=== PATIENT | male | born 1930 | race Caucasian/White ===

== ENCOUNTER 2017-04-25 04:26 | Inpatient (IN) | payer MEDICARE, OTHER ==
[~2017-04-25] VITALS: Ht 185.4 cm; Wt 81.6 kg
[2017-04-25 04:55] LABS: BASOPHILS 0.1 % (0-2); EOSINOPHILS 0.2 % (0-7); HEMATOCRIT 42.2 % (42.0-54.0); HEMOGLOBIN 14.7 g/dL (13.5-17.5); IMMATURE GRANULOCYTES 0.1 % (0-5); MCH 32.1 pg (26.0-34.0); MCHC 34.8 g/dL (31.0-37.0); MCV 92.1 fL (80.0-100.0); MEAN PLATELET VOLUME 10.2 fL (7.4-10.4); NEUTROPHILS 84.6 % (40-80); PLATELET COUNT 152 10x3/uL (130-400); RBC 4.58 10x6/uL (4.20-6.10); RDW 12.9 % (11.5-14.5); WBC 8.4 10x3/uL (4.8-10.8)
[2017-04-25 05:11] LABS: ALBUMIN 3.8 g/dL (3.4-5.0); ANION GAP 13.1 mmol/L (8-16); BILIRUBIN - TOTAL 0.54 mg/dL (0.2-1.3); CALCIUM 9.3 mg/dL (8.5-10.1); CARBON DIOXIDE 26.2 mmol/L (21.0-32.0); CREATININE - SERUM 1.5 mg/dL (0.6-1.3); POTASSIUM - SERUM 4.3 mmol/L (3.5-5.1); PROTEIN - SERUM 7.3 g/dL (6.4-8.2)
[2017-04-25 05:12] LABS: TROPONIN-I 0.02 ng/mL (0.000-0.060)
[2017-04-25 05:46] LABS: APPEARANCE CLEAR (CLEAR); BILIRUBIN NEGATIVE (NEGATIVE); COLOR YELLOW (YELLOW); GLUCOSE NEGATIVE (NEGATIVE); KETONE SMALL mg/dL (NEGATIVE); LEUKOCYTE ESTERASE NEGATIVE (NEGATIVE); NITRITE NEGATIVE (NEGATIVE); PROTEIN NEGATIVE (NEGATIVE); UROBILINOGEN NORMAL (NORMAL)
--- NOTE | 2017-04-25 12:16 | NUR ---
RECEIVED TO ROOM 2220 FROM VIA . ORIENTED TO ROOM AND CALL LIGHT SYSTEM.
[2017-04-25] MEDS ORDERED: SYNTHROID75 MCG PO (13:07)
[2017-04-25] MEDS ORDERED: CARDURA8 MG PO (13:08)
[2017-04-25] MEDS ORDERED: SINGULAIR10 MG PO (13:08)
[2017-04-25] MEDS ORDERED: NEURONTIN 300300 MG PO (13:09)
[2017-04-25] MEDS ORDERED: SPIRIVA18 MCG INH (13:09)
[2017-04-25] MEDS ORDERED: AZELASTINE137 MCG/0. NASAL (13:10)
[2017-04-25] MEDS ORDERED: SYMBICORT 16010.2 GM INH (13:11)
[2017-04-25] MEDS ORDERED: ZANTAC150 MG PO (13:12)
[2017-04-25] MEDS ORDERED: VENTOLIN HFA18 GM INH (13:12)
[2017-04-25] MEDS ORDERED: MYSOLINE 50 MG50 MG PO (13:13)
[2017-04-25] MEDS ORDERED: BAYER CHEWABLE81 MG PO (13:13)
[2017-04-25] MEDS ORDERED: TEMOVATE 0.05%15 G1 TOPICAL (13:14)
[2017-04-25 14:04] VITALS: BP 160/67; BMI 23.8
--- NOTE | 2017-04-25 14:12 | NUR ---
LEFT NARE NGT PLACED TO LIWS. NS INITIATED @ 100 CC/HR
--- NOTE | 2017-04-25 16:42 | NUR ---
BUPRENEX 0.1MG SIVP PER C/O PAIN. CALL LIGHT IN REACH.
[2017-04-25 20:00] VITALS: BP 197/91
--- NOTE | 2017-04-25 20:00 | NUR ---
ASSESSMENT PER FLOWSHEET. IV PATENT RT ARM OF NS AT 100CC'S/HR SITE CLEAR. NPO AT THIS TIME NGT PATENT LEFT NARE AND CONNECTED TO LIWS GREEN COLORED DRAINAGE RETURNED.SCD'S ON. FAMILY IN ROOM. HOB UP 45 DEGREES.
--- NOTE | 2017-04-25 21:30 | NUR ---
PT STILL HAVING EMESIS EVEN AFTER ADVANCING NGT. SMALL AMOUNT GREEN EMESIS NOTED.TURNED PUMP ON CONTINUOUS FOR ABOUT 15 MINUTES TO EMPTY OUT STOMACH.
--- NOTE | 2017-04-25 22:44 | NUR ---
C/O ABDOMINAL PAIN. BUPREXEX 0.1MG IVP GIVEN FOR PAIN CONTROL.
[2017-04-26] VITALS (8 sets, daily range): BP systolic 149–181; BP diastolic 65–81; Ht 185.4 cm; Wt 81.6 kg
--- NOTE | 2017-04-26 00:18 | NUR ---
CALLED TO ROOM BY FAMILY MEMBER. STATES PT HAD EMESIS. 1 TSP GREEN BILE COLORED EMESIS NOTED IN EMESIS BAG GOWN CHANGED.TOO SOON FOR ZOFRAN WILL GIVE IF NEEDED WHEN TIME PERMITS.
--- NOTE | 2017-04-26 00:58 | NUR ---
HAVING BROWN COLORED EMESIS ZOFRAN 4MG IVP GIVEN FOR EMESIS. SET PT UP IN CHAIR AND CHANGED GOWN AND BED LINENS. ASSISTEDTO UPRIGHT POSITION STOOD AND PT VOIDED 400 CC'S AIMEE COLORED URINE. ASSISTED BACK TO BED. SR UP X2 CALL LIGHT WITHIN REACH. FAMILY AT BEDSIDE.
[2017-04-26 05:20] LABS: BASOPHILS 0 % (0-2); EOSINOPHILS 0 % (0-7); HEMATOCRIT 44.8 % (42.0-54.0); HEMOGLOBIN 15.4 g/dL (13.5-17.5); LYMPHOCYTES 6.4 % (15-50); MCHC 34.4 g/dL (31.0-37.0); MCV 93.1 fL (80.0-100.0); MEAN PLATELET VOLUME 10.7 fL (7.4-10.4); MONOCYTES 5.1 % (2-11); NEUTROPHILS 88.5 % (40-80); PLATELET COUNT 159 10x3/uL (130-400); RBC 4.81 10x6/uL (4.20-6.10); RDW 13.1 % (11.5-14.5); WBC 6.8 10x3/uL (4.8-10.8)
[2017-04-26 05:45] LABS: ALBUMIN 2.9 g/dL (3.4-5.0); ANION GAP 13.1 mmol/L (8-16); BILIRUBIN - TOTAL 1.2 mg/dL (0.2-1.3); CALCIUM 8.2 mg/dL (8.5-10.1); CARBON DIOXIDE 24.3 mmol/L (21.0-32.0); CREATININE - SERUM 1.7 mg/dL (0.6-1.3); POTASSIUM - SERUM 4.4 mmol/L (3.5-5.1); PROTEIN - SERUM 6.2 g/dL (6.4-8.2)
--- NOTE | 2017-04-26 06:15 | NUR ---
PORT KUB DONE IN ROOM NO CHANGES IN ASSESSMENT STATES FEELING SOME BETTER.
--- NOTE | 2017-04-26 07:20 | NUR ---
PATIENT RECEIVED ALERT IN HIGH SAPP POSITION WITH FAMILY AT BEDSIDE. NO SIGNS OF DISTRESS NOTED. SIDE RAILS UP X2. BED IN LOW POSITION. CALL LIGHT IN REACH.
--- NOTE | 2017-04-26 07:40 | NUR ---
PATIENT ALERT IN BED. REPORTS VOMITING. APPROXIMATELY 40CC BROWN EMESIS IN BASIN. NGT TO LIWS. PLACEMENT VERIFIED WITH AIR BOLUS. ZOFRAN PER PRN ORDER. FAMILY PRESENT. SIDE RAILS UP X2. BED IN LOW POSITION. CALL LIGHT IN REACH.
--- NOTE | 2017-04-26 10:00 | NUR ---
SITTING UP IN CHAIR AT BEDSIDE ALERT. NO SIGNS OF DISTRESS NOTED. FAMILY PRESENT. CALL LIGHT IN REACH.
--- NOTE | 2017-04-26 11:17 | NUR ---
ASSISTED BACK TO BED FROM CHAIR. POSITIONED FOR COMFORT. WELL TOLERATED. DENIES NEEDS. SIDE RAILS UP X2. BED IN LOW POSITION. CALL LIGHT IN REACH.
--- NOTE | 2017-04-26 11:32 | NUR ---
Patient Name: MYLENE ZABALA Admission Status: ER Accout number: [id number] Admission Date: 04-25-2017 : 1928 Admission Diagnosis: Attending: ESTEBAN Current LOS: 1 Anticipated DC Date: 04-28-2017 Planned Disposition: Home Primary Insurance: MEDICARE A & B Discharge Planning Comments: CM MET WITH PATIENT AND FAMILY (-CESAR AND LINDEN -DAUGHTER) REGARDING D/C NEEDS AND PLANS. PATIENT STATED HIS FAMILY WILL DRIVE HIM HOME AT DISCHARGE. PATIENT HAS 4 STEPS W/RAILS TO ENTER HOME AND NO STAIRS INSIDE. PATIENT IS INDEPENDENT WITH HIS CARE AND HAS A CANE AND WHEELCHAIR. PATIENTS PCP IS DR. RICHARD AND PHARMACY IS [facility] [place]. PATIENT AND FAMILY WANTS TO WAIT AND SEE IF DOCTOR THINKS HE WOULD NEED IT. CM WILL CONTINUE TO FOLLOW PATIENT WITH D/C NEEDS AND PLANS. PCP DR. [facility] [place]- [phone] CESAR () [phone] LINDEN (DAUGHTER) [phone] Cheese Tester: Rafia Sinha Is the patient Alert and Oriented? Yes 0 * How many steps to enter\exit or inside your home? 4 0 * PCP HILARY 0 * Pharmacy [facility] [place] 0 * Preadmission Environment Home with Family 0 * ADLs Independent 0 * Equipment Cane Wheelchair 0 * List name and contact numbers for known caregivers / representatives who currently or will assist patient after discharge: CESAR () [phone] LINDEN (DAUGHTER) [phone] 0 * Community resources currently utilized None 0 * Additional services required to return to the preadmission environment? Yes 0 * Can the patient safely return to the preadmission environment? Yes 0 * Has this patient been hospitalized within the prior 30 days at any hospital? No 0 Grand Total: 0
--- NOTE | 2017-04-26 13:10 | NUR ---
CONSENT OBTAINED FOR ORDERED SURGERY.
--- NOTE | 2017-04-26 17:17 | NUR ---
PRE PROCEDURE MEDICATION ADMINISTERED. DENIES NEEDS. FAMILY PRESENT. SIDE RAILS UP X2. BED IN LOW POSITION. CALL LIGHT IN REACH.
--- NOTE | 2017-04-26 20:00 | NUR ---
ASSESMENT PER FLOWSHEET. NGT TO LIWS WITH BROWN COLORED DRAINAGE. IV PATENT RT FOREARM OF NS AT 100CC'S/HR SITE CLEAR. FAMILY IN ROOM. PT WAITING TO GO TO SURGERY.
--- NOTE | 2017-04-26 21:10 | NUR ---
TO SURGERY PER BED. FAMILY ACCOMPANYING PATIENT.
--- NOTE | 2017-04-26 23:31 | NUR ---
REC'D BACK TO ROOM 2220 FROM PACU POST OP DIAGNOSTIC LAPAROTOMY PER SERVICE DR. ZHU. ONE MIDLINE ABDOMINAL INCISION WITH DRSG C/D/I WITH 2 SMALL BANDAIDES TO THE LEFT OF MIDLINE INCISION C/D/I. PT IS AWAKE ALERT AND ORIENTED X3 O2 ON 4 L/M PER NC. HOB UP 35 DEGREES. TAKING ICE CHIPS PO. SR UP X2 CALL LIGHT WITHIN REACH FAMILY AT BEDSIDE.
[2017-04-27] VITALS (13 sets, daily range): BP systolic 125–189; BP diastolic 54–93
--- NOTE | 2017-04-27 05:10 | NUR ---
URINAL IN PLACE VPOIDED 400CC'S DARK AIMEE UA
[2017-04-27 05:38] LABS: BASOPHILS 0 % (0-2); EOSINOPHILS 0 % (0-7); HEMOGLOBIN 13.4 g/dL (13.5-17.5); LYMPHOCYTES 11.5 % (15-50); MCH 31.8 pg (26.0-34.0); MCHC 34.4 g/dL (31.0-37.0); MCV 92.4 fL (80.0-100.0); MEAN PLATELET VOLUME 10.7 fL (7.4-10.4); MONOCYTES 7.1 % (2-11); NEUTROPHILS 81.4 % (40-80); PLATELET COUNT 134 10x3/uL (130-400); RBC 4.22 10x6/uL (4.20-6.10); RDW 13.3 % (11.5-14.5)
[2017-04-27 05:42] LABS: WBC 4.8 10x3/uL (4.8-10.8)
[2017-04-27 06:00] LABS: ALBUMIN 2.5 g/dL (3.4-5.0); ANION GAP 10.3 mmol/L (8-16); BILIRUBIN - TOTAL 0.99 mg/dL (0.2-1.3); CALCIUM 8.2 mg/dL (8.5-10.1); CARBON DIOXIDE 25.9 mmol/L (21.0-32.0); CREATININE - SERUM 1.6 mg/dL (0.6-1.3); POTASSIUM - SERUM 4.2 mmol/L (3.5-5.1); PROTEIN - SERUM 5.7 g/dL (6.4-8.2)
--- NOTE | 2017-04-27 06:15 | NUR ---
C/O INCISIONAL PAIN BUPRENEX 0.1MG IVP GIVEN FOR PAIN CONTROL.
--- NOTE | 2017-04-27 07:30 | NUR ---
RECIEVED PT DURING WALKING ROUNDS, PT RESTING COMFORTABLY IN BED WITH COMPLAINTS OF PAIN OF A 3 ON A SCALE OF 1-10. NO MEDICATION TO BE GIVEN AT THIS TIME. ASSESSMENT DONE PER FLOWSHEET. BED IN LOW POSITION AND CALL LIGHT WITHIN REACH. WILL CONTINUE TO MONTIOR.
--- NOTE | 2017-04-28 02:37 | NUR ---
PT SLEEPING. RESP EVEN, UNLABORED. NO DISTRESS NOTED. CONTINUE SENIOR WINDOWS ENGINEER'S PLAN OF CARE.
[2017-04-28 04:00] VITALS: BP 132/61
[2017-04-28 04:47] LABS: BASOPHILS 0 % (0-2); EOSINOPHILS 0 % (0-7); HEMATOCRIT 33.7 % (42.0-54.0); HEMOGLOBIN 11.4 g/dL (13.5-17.5); LYMPHOCYTES 21.7 % (15-50); MCH 31.5 pg (26.0-34.0); MCHC 33.8 g/dL (31.0-37.0); MCV 93.1 fL (80.0-100.0); MEAN PLATELET VOLUME 10.5 fL (7.4-10.4); MONOCYTES 9.9 % (2-11); NEUTROPHILS 68.4 % (40-80); PLATELET COUNT 130 10x3/uL (130-400); RBC 3.62 10x6/uL (4.20-6.10); RDW 13.4 % (11.5-14.5); WBC 4.6 10x3/uL (4.8-10.8)
[2017-04-28 05:05] LABS: ALBUMIN 2.1 g/dL (3.4-5.0); BILIRUBIN - TOTAL 0.6 mg/dL (0.2-1.3); CALCIUM 7.9 mg/dL (8.5-10.1); CARBON DIOXIDE 24.7 mmol/L (21.0-32.0); CREATININE - SERUM 1.4 mg/dL (0.6-1.3); POTASSIUM - SERUM 3.7 mmol/L (3.5-5.1); PROTEIN - SERUM 5.3 g/dL (6.4-8.2)
--- NOTE | 2017-04-28 07:35 | NUR ---
A&O, AT BEDSIDE, DENIES NEEDS, CALL LIGHT IN REACH, WILL CONTINUE TO MONITOR
[2017-04-28 09:19] VITALS: BP 138/65
[2017-04-28 12:45] VITALS: BP 164/77
--- NOTE | 2017-04-28 12:57 | NUR ---
NUTRITION MONITORING & EVAL CHART REVIEWED. PT REMAINS NPO, S/P DIDI. WILL MONITOR DIET ADVANCEMENT, PT PROGRESS. RD FOLLOWING
--- NOTE | 2017-04-28 12:59 | OP ---
PATIENT NAME: MYLENE ZABALA MEDICAL RECORD: [id number] :[birth year] LOCATION:[facility] ADMISSION DATE:04/25/17 SURGEON: CHOLO ISABEL MD DATE OF OPERATION: 04/26/2017 PREOPERATIVE DIAGNOSES: 1. Small-bowel obstruction. 2. Chronic obstructive pulmonary disease. 3. Gastroesophageal reflux disease. POSTOPERATIVE DIAGNOSES: 1. Small-bowel obstruction. 2. Chronic obstructive pulmonary disease. 3. Gastroesophageal reflux disease. 4. Ischemic small bowel secondary to closed loop obstruction. PROCEDURE: 1. Diagnostic laparoscopy. 2. Open lysis of adhesions. SURGEON: Cholo Isabel MD REPORT OF PROCEDURE: The patient's abdomen was prepped and draped in sterile fashion. A Veress needle was inserted in the left upper quadrant and abdomen was insufflated. A 5-mm Visiport trocar was inserted in the left lateral abdomen. The Veress needle was inspected and there was no sign of any injury to bowel or surrounding structures. Another 5-mm trocar was placed in the left upper quadrant and a final 5-mm trocar was placed in the midline just below the umbilicus. As we inspected the abdomen, there were a few adhesions present of the omentum to this abdominal wall and these were teased down carefully with blunt dissection. As we inspected on the right side of the abdomen, there was noted to be a very ischemic loop of small bowel. This was almost black in nature. I went ahead inside of this point just to open up the abdomen as I had feared that this bowel was completely . Midline incision was performed and electrocautery was used to dissect through the subcutaneous tissue. Once in the abdomen, I inspected the patient's right upper quadrant and was able to take down a single adhesion that was present causing the obstruction. Once this was released then all of the bowel was mobile. I eviscerated the small bowel out of the abdomen and noticed that the bowel quickly started to pink up. The bowel still had some dark blue areas on its most antimesenteric side which appeared to be most consistent with venous congestion. I did not see any evidence of necrosis anywhere throughout the bowel. As I felt the bowel, I could feel pulsatile blood flow coming up through the mesentery to the small bowel. After we watched for approximately 10 minutes and noted that the bowel was pinking up and appeared to be viable, I went ahead and decided not to perform a resection. The bowel was placed back into the abdominal cavity and the omentum was placed over it. The midline fascia was then closed with running #1 loop PDS times 2 and the skin was closed with niko. I performed a TAP block to the muscular tissue using 10 mL of 0.25% Marcaine with epinephrine. COMPLICATIONS: None. CONDITION: Stable. ANESTHESIA: General endotracheal. OPERATIVE REPORT [id number] MYLENE ZABALA BLOOD LOSS: Minimal. TRANSINT:[id number] Voice Confirmation ID: [id number] DOCUMENT ID: [id number] CHOLO ISABEL MD at 1259 CC: [id number] DICTATION DATE: 04/26/172299 INSTRUMENT MAKER AND REPAIRER: 04/27/17 0640 ADM IN [place] [id number] [place] [id number]
[2017-04-28 16:45] VITALS: BP 165/76
[2017-04-28 20:00] VITALS: BP 179/76
[2017-04-29] VITALS: BP 168/70
[2017-04-29 04:00] VITALS: BP 174/74
--- NOTE | 2017-04-29 05:31 | NUR ---
PATIENT RESTING COMFORTABLY IN BED WITH NO COMPLAINTS AND AT BEDSIDE. NS INFUSING @50 TO RIGHT FOREARM. 3LPM O2 VIA NC NOTED. PATIENT HAS NOTED THAT HE HAS TREMORS AND IS WAITING TO HAVE A BM BEFORE HE CAN HAVE HIS MEDICATIONS FOR THEM. NO NEEDS NOTED. BED IN LOWEST LOCKED POSITION, HOB ELEVATED, BED RAILS UP X2, CALL LIGHT WITHIN REACH.
[2017-04-29 05:35] LABS: BASOPHILS 0 % (0-2); EOSINOPHILS 0.9 % (0-7); HEMATOCRIT 35.5 % (42.0-54.0); HEMOGLOBIN 12.2 g/dL (13.5-17.5); IMMATURE GRANULOCYTES 0.7 % (0-5); LYMPHOCYTES 18.9 % (15-50); MCH 31.9 pg (26.0-34.0); MCHC 34.4 g/dL (31.0-37.0); MCV 92.7 fL (80.0-100.0); MEAN PLATELET VOLUME 10.1 fL (7.4-10.4); MONOCYTES 8.8 % (2-11); NEUTROPHILS 70.7 % (40-80); RBC 3.83 10x6/uL (4.20-6.10); RDW 13.2 % (11.5-14.5); WBC 5.6 10x3/uL (4.8-10.8)
[2017-04-29 05:40] LABS: PLATELET COUNT 162 10x3/uL (130-400)
[2017-04-29 05:42] LABS: ALBUMIN 2.4 g/dL (3.4-5.0); ANION GAP 12.1 mmol/L (8-16); BILIRUBIN - TOTAL 0.8 mg/dL (0.2-1.3); CALCIUM 8.3 mg/dL (8.5-10.1); CARBON DIOXIDE 25.9 mmol/L (21.0-32.0); CREATININE - SERUM 1.2 mg/dL (0.6-1.3); PROTEIN - SERUM 5.9 g/dL (6.4-8.2)
--- NOTE | 2017-04-29 07:25 | NUR ---
ASSESSMENT COMPLETE. IV TO R FA PATENT. NS INFUSING AT 50 CC/HR VIA PUMP. DRESSING TO ABDOMEN INTACT. O2 3L NC IN USE. [place]. FAMILY AT BEDSIDE. REPORTS PASSING NO GAS SINCE SURGERY. NO BOWEL SOUNDS HEARD AT THIS TIME. DENIES ANY NAUSEA AT THIS TIME.
[2017-04-29 07:49] VITALS: BP 158/74
--- NOTE | 2017-04-29 09:00 | NUR ---
SITING UP IN CHAIR. FAMILY AT BEDSIDE. DENIES ANY NEEDS AT PRESENT.
--- NOTE | 2017-04-29 11:10 | NUR ---
RESTING QUIETLY IN BED. FAMILY AT BEDSIDE. DENIES ANY NEEDS AT PRESENT. DRESSING REMOVED BY DR. ISABEL.
[2017-04-29 12:18] VITALS: BP 175/77
--- NOTE | 2017-04-29 13:30 | NUR ---
RESTING QUIETLY IN BED. NO CHANGES NOTED.
[2017-04-29 14:43] VITALS: BP 184/71
--- NOTE | 2017-04-29 16:00 | NUR ---
RESTING QUIETLY IN BED. TALKING WITH MULTIPLE VISITORS IN ROOM. DENIES ANY NEEDS AT PRESENT.
--- NOTE | 2017-04-29 18:30 | NUR ---
REPORTS PASSING NO FLATUS THIS SHIFT.
[2017-04-29 20:00] VITALS: BP 174/64
[2017-04-30] VITALS: BP 141/54
--- NOTE | 2017-04-30 03:18 | NUR ---
PATIENT SLEEPING SUPINE IN BED. HOB 0 DEGREES. RR EVEN AND UNLABORED. 0 S/S OF DISTRESS. AT BEDSIDE. SRX2. BED LOW. CALL LIGHT WITHIN REACH.
[2017-04-30 04:00] VITALS: BP 144/60
[2017-04-30 05:17] LABS: BASOPHILS 0 % (0-2); EOSINOPHILS 1.1 % (0-7); HEMATOCRIT 32.9 % (42.0-54.0); HEMOGLOBIN 11.5 g/dL (13.5-17.5); IMMATURE GRANULOCYTES 0.7 % (0-5); LYMPHOCYTES 21.8 % (15-50); MCH 31.9 pg (26.0-34.0); MCV 91.1 fL (80.0-100.0); MEAN PLATELET VOLUME 9.7 fL (7.4-10.4); MONOCYTES 7.8 % (2-11); NEUTROPHILS 68.6 % (40-80); PLATELET COUNT 149 10x3/uL (130-400); RBC 3.61 10x6/uL (4.20-6.10); RDW 12.9 % (11.5-14.5); WBC 5.6 10x3/uL (4.8-10.8)
[2017-04-30 05:31] LABS: ALBUMIN 2.3 g/dL (3.4-5.0); BILIRUBIN - TOTAL 0.87 mg/dL (0.2-1.3); CALCIUM 8.1 mg/dL (8.5-10.1); CARBON DIOXIDE 21.6 mmol/L (21.0-32.0); CREATININE - SERUM 1.2 mg/dL (0.6-1.3); POTASSIUM - SERUM 3.6 mmol/L (3.5-5.1); PROTEIN - SERUM 5.5 g/dL (6.4-8.2)
--- NOTE | 2017-04-30 07:30 | NUR ---
AT BEDSIDE, DENIES NEEDS, STATES PASSING GAS, BOWEL SOUNDS ACTIVE X4 QUADS, BED LOWEST POSITION, CALL LIGHTIN REACH, WILL CONTINUE TO MONITOR
[2017-04-30 08:23] VITALS: BP 154/63
--- NOTE | 2017-04-30 10:00 | NUR ---
PT AOX4 RESP EVEN AND NONLABORED PT DENIES NEEDS AT THIS TIME IV TO RIGHT FOREARM PATENT AND INTACT SRX2 BED AT LOWEST SETTING CALL LIGHT WITHIN REACH FAMILY AT BEDSIDE. PT HERE FOR SMALL BOWEL OBSTRUCTION
[2017-04-30 12:55] VITALS: BP 143/58
[2017-04-30 16:14] VITALS: BP 154/84
[2017-04-30 19:00] VITALS: BP 191/91
--- NOTE | 2017-04-30 23:16 | NUR ---
PATIENT VOMITED ON BED WITH LARGE AMOUNT OF THE FLOOR. FOREST SUPERVISOR REPORTED THAT IS WAS BRIGHT GREEN/YELLOW IN COLORATION. PATIENT REPORTS THAT HE WOKE UP WHILE GETTING A NEBULIZER TREATMENT AND VOMITED. HE HAS NO NAUSEA AT THIS TIME.
--- NOTE | 2017-05-01 05:46 | NUR ---
PATIENT REPORTED VOMITING 3 TIMES THROUGH THE NIGHT.
--- NOTE | 2017-05-01 07:20 | NUR ---
ASSESSMENT PER FLOW SHEET.PT WITHOUT DISTRESS.MIDLINE ABDOMINAL INCISION APROXIMATED WITH 13 KRISTAL.SITE WITHOUT REDNESS OR DRAINAGE.LAP SITES X3 APROXIMATED WITH 1 STAPLE ON EACH SITE.SITES WITHOUT DRAINAGE.URINE VERY CONCENTRATED,AIMEE COLORED.PT AND REPORT 3 EPISODES OF VOMITING THROUGHOUT NIGHT.PT DENIES NAUSEA AT PRESENT.FALL PREVENTION INITIATED WITH BOX ALARM IN PLACE.CALL LIGHT IN REACH.
[2017-05-01 07:51] VITALS: BP 124/85
[2017-05-01 09:59] LABS: BASOPHILS 0 % (0-2); EOSINOPHILS 0.1 % (0-7); HEMATOCRIT 35.6 % (42.0-54.0); HEMOGLOBIN 12.4 g/dL (13.5-17.5); IMMATURE GRANULOCYTES 1.4 % (0-5); LYMPHOCYTES 7.9 % (15-50); MCH 31.9 pg (26.0-34.0); MCHC 34.8 g/dL (31.0-37.0); MCV 91.5 fL (80.0-100.0); MEAN PLATELET VOLUME 9.5 fL (7.4-10.4); MONOCYTES 6.9 % (2-11); NEUTROPHILS 83.7 % (40-80); PLATELET COUNT 170 10x3/uL (130-400); RBC 3.89 10x6/uL (4.20-6.10); RDW 12.8 % (11.5-14.5)
[2017-05-01 10:05] LABS: WBC 9.2 10x3/uL (4.8-10.8)
[2017-05-01 10:23] LABS: ALBUMIN 2.6 g/dL (3.4-5.0); ANION GAP 17.6 mmol/L (8-16); BILIRUBIN - TOTAL 0.83 mg/dL (0.2-1.3); CALCIUM 8.1 mg/dL (8.5-10.1); CARBON DIOXIDE 21.2 mmol/L (21.0-32.0); CREATININE - SERUM 1.1 mg/dL (0.6-1.3); POTASSIUM - SERUM 3.8 mmol/L (3.5-5.1)
--- NOTE | 2017-05-01 10:50 | NUR ---
ZOFRAN ORDERED.LARGE QUANITIES OF YELLOW EMESIS ALL OVER PT,BED AND FLOOR.
[2017-05-01 11:56] VITALS: BP 167/74
[2017-05-01 16:13] VITALS: BP 138/66
--- NOTE | 2017-05-01 18:48 | NUR ---
JUST HAD EPISODE OF VOMITING.CLEAR YELLOW IN COLOR.2ND ZANDER TODAY.CONT PLAN OF CARE
[2017-05-01 20:00] VITALS: BP 146/74
--- NOTE | 2017-05-01 20:00 | NUR ---
ASSESSMENT PER FLOWSHEET. IV PATENT RT FOREARM OF PROCALAMINE INFUSING AT 125CC'S/HR LIPIDS HANGING AT 30CC'S/HR. MIDLINE ABD. INCISION C/D/I WITH 13 KRISTAL INTACT AND LAP SITES X3 C/D/I. NPO AT THIS TIME. RELATIVE AT BEDSIDE. BOX ALARM ON. REQUEST SCD'S BE OFF FOR A WHILE. NO EMESIS NOTED.
--- NOTE | 2017-05-01 21:30 | NUR ---
MEDS GIVEN PO WITH SIP OF WATER. NO VOMITING NOTED.
--- NOTE | 2017-05-02 | NUR ---
EYES CLOSED RESPIRATIONS WITH EASE AND UNLABORED.
--- NOTE | 2017-05-02 03:00 | NUR ---
VOIDS IN URINAL NO VOMITING NOTED.
[2017-05-02 04:00] VITALS: BP 154/65
--- NOTE | 2017-05-02 05:31 | NUR ---
RESTING QUIETLY RESPIRATIONS WITH EASE AND UNLABORED.
[2017-05-02 05:46] LABS: BASOPHILS 0.1 % (0-2); EOSINOPHILS 0.2 % (0-7); HEMATOCRIT 29.9 % (42.0-54.0); HEMOGLOBIN 10.7 g/dL (13.5-17.5); LYMPHOCYTES 14.6 % (15-50); MCH 32.1 pg (26.0-34.0); MCHC 35.8 g/dL (31.0-37.0); MCV 89.8 fL (80.0-100.0); MEAN PLATELET VOLUME 9.7 fL (7.4-10.4); MONOCYTES 7.2 % (2-11); NEUTROPHILS 76.9 % (40-80); PLATELET COUNT 166 10x3/uL (130-400); RBC 3.33 10x6/uL (4.20-6.10); RDW 12.6 % (11.5-14.5); WBC 8.1 10x3/uL (4.8-10.8)
[2017-05-02 06:14] LABS: ALBUMIN 2.1 g/dL (3.4-5.0); ALKALINE PHOSPHATASE 64 U/L (46-116); ALT (SGPT) 51 U/L (10-68); BILIRUBIN - TOTAL 0.53 mg/dL (0.2-1.3); CALC OSMOLALITY 284 mosm/kg (275-300); CALCIUM 7.5 mg/dL (8.5-10.1); CARBON DIOXIDE 24.6 mmol/L (21.0-32.0); CHLORIDE - SERUM 108 mmol/L (98-107); GLUCOSE 115 mg/dL (74-106); POTASSIUM - SERUM 3.8 mmol/L (3.5-5.1); PROTEIN - SERUM 4.6 g/dL (6.4-8.2); SODIUM 141 mmol/L (136-145); UREA NITROGEN 22 mg/dL (7-18); eGFR NON AFRICAN AMERICAN 75 mL/min (90-120)
--- NOTE | 2017-05-02 07:30 | NUR ---
UP IN CHAIR,WITHOUT DISTRESS.INCISION TO ABDOMEN MIDLINE APROXIMATED WITH KRISTAL.LAP SITES X3 HAS ONE STAPLE EACH.ALL SITES WITHOUT REDNESS OR DRAINAGE.PT WITHOUT NAUSEA THIS AM.REPORT LARGE LOOSE BLACK STOOL THIS AM.FALL PREVENTION IN PLACE. AT BEDSIDE.CALL LIGHT IN GEMINI
[2017-05-02 08:18] VITALS: BP 124/56
[2017-05-02 11:47] VITALS: BP 160/63
--- NOTE | 2017-05-02 15:27 | NUR ---
HAS REMAINED WITHOUT NAUSEA TODAY.STILL WITHOUT PAIN.REMAINS WITHOUT CHANGE.CONT TO MONITOR
[2017-05-02 16:46] VITALS: BP 166/62
--- NOTE | 2017-05-02 19:10 | NUR ---
REMAINS WITHOUT NEEDS,WITHOUT CHANGE.HAS HAD 1 VERY LARGE SOFT FORMED STOOL THIS AFTERNOON.CONT PLAN OF CARE
[2017-05-02 20:00] VITALS: BP 140/55
--- NOTE | 2017-05-02 20:00 | NUR ---
ASSESSMENT PER FLOWSHEET. PT SITTING UPRIGHT IN CHAIR AT BEDSIDE. IV PATENT RT FOREARM OF PROCAL AT 100CC'S/HR SITE CLEAR. FEELING MUCH BETTER TODAY STATES ACTUALLY HAD A NORMAL BOWEL MOVEMENT TODAY. INCISIONS TO ABDOMEN C/D/I. O2 ON PT ON ROOM AIR NO DISTRESS.SCD'S OFF AT PT'S REQUEST.
--- NOTE | 2017-05-02 21:30 | NUR ---
MEDS GIVEN PER MAR.
--- NOTE | 2017-05-02 23:30 | NUR ---
IN BED WITH EYES CLOSED RESPIRATIONS WITH EASE AND UNLABORED. RELATIVE AT BEDSIDE.
[2017-05-03 04:00] VITALS: BP 157/80
[2017-05-03 05:18] LABS: BASOPHILS 0.2 % (0-2); EOSINOPHILS 0.9 % (0-7); HEMATOCRIT 30.3 % (42.0-54.0); HEMOGLOBIN 10.7 g/dL (13.5-17.5); IMMATURE GRANULOCYTES 1.8 % (0-5); LYMPHOCYTES 21.2 % (15-50); MCH 31.8 pg (26.0-34.0); MCHC 35.3 g/dL (31.0-37.0); MCV 89.9 fL (80.0-100.0); MEAN PLATELET VOLUME 9.5 fL (7.4-10.4); MONOCYTES 8.5 % (2-11); NEUTROPHILS 67.4 % (40-80); PLATELET COUNT 156 10x3/uL (130-400); RBC 3.37 10x6/uL (4.20-6.10); RDW 12.7 % (11.5-14.5)
[2017-05-03 05:28] LABS: WBC 5.7 10x3/uL (4.8-10.8)
[2017-05-03 05:44] LABS: ANION GAP 9.6 mmol/L (8-16); BILIRUBIN - TOTAL 0.4 mg/dL (0.2-1.3); CALCIUM 7.5 mg/dL (8.5-10.1); CARBON DIOXIDE 25.3 mmol/L (21.0-32.0); CREATININE - SERUM 1.1 mg/dL (0.6-1.3); POTASSIUM - SERUM 3.9 mmol/L (3.5-5.1); PROTEIN - SERUM 4.7 g/dL (6.4-8.2)
--- NOTE | 2017-05-03 07:15 | NUR ---
REPORT RECEIVED FROM DIRECTOR OF ANALYTICS NURSE. CALL LIGHT IN REACH.
[2017-05-03 07:49] VITALS: BP 119/63
--- NOTE | 2017-05-03 09:42 | NUR ---
ASSESSMENT COMPLETED. AM MEDS ADMINISTERED. REPOSITIONED IN BED. REFUSES SCDs. IN ROOM. CALL LIGHT IN REACH. WILL CONTINUE WITH PLAN OF CARE.
--- NOTE | 2017-05-03 10:51 | NUR ---
AMBULATED IN HALLWAY WITH STANDBY ASSIST FROM PAMPHLET DISTRIBUTOR. TOLERATED WELL. NEW BAG OF PROCALAMINE INITIATED.
--- NOTE | 2017-05-03 11:29 | NUR ---
ATTEMPTING TO WEAN OFF OF 02. O2 DECREASED TO 1L PER NC. WILL CONTINUE TO MONITOR.
[2017-05-03 12:19] VITALS: BP 107/62
--- NOTE | 2017-05-03 13:14 | NUR ---
CM met with patient and to discuss home health options. Patient chose [facility] ([facility] signed) CM will set HH up. CM will continue to follow and assist
--- NOTE | 2017-05-03 13:15 | NUR ---
WEANED OFF OF O2. O2 SAT 94% ON ROOM AIR. DR. ISABEL IN ROOM TO SEE PATIENT.
--- NOTE | 2017-05-03 14:40 | NUR ---
REGLAN IVP PER ORDER. DENIES NEEDS. PROCALAMINE INFUSING. IN ROOM. CALL LIGHT IN REACH.
--- NOTE | 2017-05-03 16:09 | NUR ---
DOES NOT WANT IV PROCALAMINE OR LIPIDS.
--- NOTE | 2017-05-03 16:25 | NUR ---
Referral sent to [facility] per patients choice [facility] signed
--- NOTE | 2017-05-03 17:46 | NUR ---
PATIENT SITTING UP IN THE CHAIR AND EATING HIS DINNER. FAMILY IN THE ROOM. PATIENT DENIES ANY NEEDS AT PRESENT TIME. CALL LIGHT IN PATIENT'S REACH. WILL MONITOR.
--- NOTE | 2017-05-03 18:40 | NUR ---
IV REGLAN ADMINISTERED PER ORDER. NO CHANGES IN INITIAL ASSESSMENT. STILL REFUSES SCDs. IN ROOM. CALL LIGHT IN REACH. WILL CONTINUE WITH PLAN OF CARE.
[2017-05-03 20:00] VITALS: BP 168/78
--- NOTE | 2017-05-03 20:00 | NUR ---
ASESSMENT PER FLOWSHEET. IV PATENT RT FOREARM SALINE LOCKED. PT RESTING IN BED DENIES NEEDS. ABDOMINAL INCISIONS C/D/I. VOIDS IN URINAL.
--- NOTE | 2017-05-03 21:45 | NUR ---
MEDS GIVEN PER JAN. NO NAUSEA OR EMESIS NOTED.
[2017-05-04] VITALS: BP 133/70
--- NOTE | 2017-05-04 | NUR ---
EYES CLOSED RESPIRATIONS WITH EASE AND UNLABORED.
--- NOTE | 2017-05-04 03:39 | NUR ---
RESTING QUIETLY PATIENT IS STILL REFUSING PROCALAMINE AND LIPIDS. FAMILY STATES HE IS GOING HOME TOMORROW AND HAS BEEN STARTED OF A DIET. TOLERATING IT WELL.
[2017-05-04 04:00] VITALS: BP 149/51
[2017-05-04 05:51] LABS: BASOPHILS 0.2 % (0-2); EOSINOPHILS 1.1 % (0-7); HEMATOCRIT 31.2 % (42.0-54.0); HEMOGLOBIN 11.2 g/dL (13.5-17.5); IMMATURE GRANULOCYTES 1.3 % (0-5); LYMPHOCYTES 20.4 % (15-50); MCH 32.1 pg (26.0-34.0); MCHC 35.9 g/dL (31.0-37.0); MCV 89.4 fL (80.0-100.0); MEAN PLATELET VOLUME 9.5 fL (7.4-10.4); MONOCYTES 8.4 % (2-11); NEUTROPHILS 68.6 % (40-80); PLATELET COUNT 167 10x3/uL (130-400); RBC 3.49 10x6/uL (4.20-6.10); RDW 12.6 % (11.5-14.5); WBC 5.4 10x3/uL (4.8-10.8)
[2017-05-04 06:13] LABS: ALBUMIN 2.1 g/dL (3.4-5.0); ANION GAP 11.4 mmol/L (8-16); BILIRUBIN - TOTAL 0.61 mg/dL (0.2-1.3); CALCIUM 7.8 mg/dL (8.5-10.1); CARBON DIOXIDE 25.3 mmol/L (21.0-32.0); CREATININE - SERUM 1.1 mg/dL (0.6-1.3); POTASSIUM - SERUM 3.7 mmol/L (3.5-5.1); PROTEIN - SERUM 4.9 g/dL (6.4-8.2)
--- NOTE | 2017-05-04 07:45 | NUR ---
ASSESSMENT COMPLETE. SL TO R FA. KRISTAL INTACT TO MIDLINE AND LAP SITES X 3 TO ABDOMEN. [place]. DENIES ANY COMPLAINT OF PAIN AT THIS TIME. AT BEDSIDE.
[2017-05-04 07:55] VITALS: BP 100/51
--- NOTE | 2017-05-04 10:53 | NUR ---
SL REMOVED. CATHETER TIP INTACT.
--- NOTE | 2017-05-04 11:00 | NUR ---
DISCHARGE TEACHING GIVEN TO PATIENT AND . VOICED UNDERSTANDING OF INSTRUCTIONS.
--- NOTE | 2017-05-04 11:15 | NUR ---
DC'D HOME WITH . ESCORTED TO VEHICLE BY VOLUNTEER VIA WC WITH BELONGINGS.
--- NOTE | 2017-05-04 11:27 | NUR ---
Met with patient this morning and explained to him that HH would be contacting him. Patient being discharged today with to drive home and patient denies any other CM needs.
== END 2017-05-04 11:15 | disposition home health service (06) | DRG 335 ==
LOC: D.ER 04:26 → D.MS 10:11
PROVIDERS: Emergency Medicine; Family Medicine; Surgery; ADMIT Family Medicine
PROC: 0DN80ZZ Release Small Intestine, Open Approach (ICD-10-PCS; principal; 2017-04-26 17:00)
DX: K56.5 Intestinal adhesions [bands] with obstruction (postinfection) (principal); K55.019 Acute (reversible) ischemia of small intestine, extent unspecified; N17.9 Acute kidney failure, unspecified; J44.9 Chronic obstructive pulmonary disease, unspecified; K21.9 Gastro-esophageal reflux disease without esophagitis

== ENCOUNTER 2018-05-09 08:40 | Outpatient (CLI) | payer MEDICARE, OTHER ==
[~2018-05-09] VITALS: Ht 185.4 cm; Wt 84.5 kg
--- NOTE | ~2018-05-09 | OP ---
PATIENT NAME: MYLENE ZABALA MEDICAL RECORD: [id number] :[birth year] LOCATION:D.[facility] ADMISSION DATE: SURGEON: PATRICE LAIRD MD DATE OF OPERATION: 05/09/2018 PROCEDURES: 1. PTCA stent left circumflex. 2. Left heart catheterization. 3. Selective coronary angiography. 4. Left ventriculogram. INDICATION: Angina and coronary artery disease. PROCEDURE PERFORMED: After informed consent was obtained and after a detailed description of risks, benefits as well as alternative therapies, the patient elected to proceed with angiogram and angioplasty. The right femoral area was prepped and draped in normal sterile fashion. The right femoral artery was cannulated via modified Seldinger technique with placement of 6-Romansh sheath. All catheters exchanged through this sheath. FINDINGS: The left ventriculogram was performed in standard 30-degree SINGH view, reveals preserved cardiac wall motion, ejection fraction 55% to 60%. SELECTIVE CORONARY ANGIOGRAPHY: 1. Left main is with no significant angiographic disease. 2. Left anterior descending has multiple areas of 80% to 90% stenosis throughout the proximal vessel. 3. Left circumflex has 2 areas of 80% to 90% stenosis throughout the proximal to mid vessel. 4. The right coronary artery has multiple areas of 80% stenosis throughout the mid vessel. PTCA STENT OF THE LEFT CIRCUMFLEX: The stent used covering both stenoses was a 3.0 x 26 mm Arthur. Result was 0% residual stenosis. OVERALL IMPRESSION: Successful percutaneous transluminal coronary angioplasty stent of the left circumflex going from 80% initial stenosis to 0% residual. PLAN: PTCA stent of the LAD and RCA in the future in a staged fashion. TRANSINT:[id number] Voice Confirmation ID: [id number] DOCUMENT ID: [id number] PATRICE LAIRD MD at 1705 CC: [id number] DICTATION DATE: 05/09/18 1213 SILK HANGER: 05/09/18 1254 [facility] CLI 05/09/[address] [address]
--- NOTE | ~2018-05-09 | HEMODYNAMI ---
PATIENT:MYLENE ZABALA MEDICAL RECORD: [id number] : [birth year] LOCATION:[facility] ADMISSION DATE: 05/09/18 Generatedon:05/09/201812:13 Patient name: MYLENE ZABALA Patient #: [id number] SSN: D OB: 1930 Date of study: 05/09/2018 Page: Of Hemodynamic Procedure Report Patient Data Patient Demographics Procedure consent was obtained First Name: MYLENE Gender: Male Last Name: SAGRARIO : 1930 [facility] Initial: DAVID Age: 87 year(s) Patient #: [id number] Race: Unknown Additional ID: [id number] Contact details [address]: [address] [place] [address] State: [place] City: [place] Zip code: [address] Past Medical History Allergies Allergen Reaction Date Comments Reported Morphine 05/09/2018 Admission Admission Data Admission Date: 05/09/2018 Admission Time: 8:40 Procedure Procedure Types Cath Procedure Diagnostic Procedure LHC LHC w/Coronaries PCI Procedure Coronary Stent Coronary Stent Initial Procedure Description Procedure Date Procedure Date: 05/09/2018 Procedure Start Time: 11:56 Procedure End Time: 12:11 Procedure Staff Name Function Adrián Barraza MD Performing Physician Eva Cisneros RT Monitor Roger Lester RN Nurse Earnest Rubin RT Scrub Procedure Data Cath Procedure Fluoroscopy Diagnostic fluoroscopy Total fluoroscopy Time: 3.3 time: 3.3 min min Diagnostic fluoroscopy Total fluoroscopy dose: 229 dose: 229 mGy mGy Contrast Material Contrast Material Type Amount (ml) Isovue 300 90 Entry Location Entry Primary Successful Side Size Upsize Upsize Entry Closure Succes sful Closure Location (Fr) 1 (Fr) 2 (Fr) Remarks Device Remarks Femoral Right 5 Fr 6 Fr Exoseal artery Short Estimated blood loss: 10 ml Diagnostic catheters Device Type Used For End Catheter Placement MULTIPACK Pigtail 5 Fr LV Angiography catheter MULTIPACK JL 4.0 5Fr Left Coronary catheter Angiography MULTIPACK 3DRC 5Fr Right Coronary catheter Angiography Procedure Complications No complications Procedure Medications Medication Administration Route Dosage Oxygen etCO2 Nasal cannula 2 l/min Heparin Flush Bag added to field 2 bags (1000units/500ml NS) 0.9% NaCl I.V. 100 ml/hr Fentanyl I.V. 50 mcg Versed I.V. 1 mg Heparin Bolus I.V. 4000 units Integrilin (Bolus I.V. 7.9 ml 2mg/ml) Integrilin (Bolus wasted 2.1 ml 2mg/ml) Plavix P.O. 600 mg Hemodynamics Rest Heart Rate: 52 (bpm) Snapshots Pre Cath Intra NCS Post Cath Vital Signs Time Heart Resp SPO2 etCO2 NIBP (mmHg) Rhythm Pain Sedation Rate (ipm) (%) (mmHg) Status Level (bpm) 11:46:09 53 16 98 25.5 Measuring NSR 0 (11) 10(A) , No pain 11:47:33 52 16 98 0 Time NSR 0 (11) 10(A) Exceeded , No pain 11:50:11 57 16 95 0 140/58(73) NSR 0 (11) 10(A) , No pain 11:54:04 54 16 91 0 144/60(94) NSR 0 (11) 10(A) , No pain 11:57:54 53 16 93 0 139/67(104) NSR 0 (11) 10(A) , No pain 12:02:14 59 17 94 0 136/64(106) NSR 0 (11) 10(A) , No pain 12:06:05 58 17 94 0 139/67(106) NSR 0 (11) 10(A) , No pain 12:09:57 57 16 92 0 143/67(113) NSR 0 (11) 10(A) , No pain Medications Time Medication Route Dose Verified Delivered Reason Notes Effectiveness by by 11:44:38 Oxygen etCO2 2 Adrián Duran Per physician Nasal l/min Christi Lester RN cannula 11:44:55 Heparin Flush added 2 Adrián Duran used for Bag to bags Christi Lester recreation therapy director (1000units/500ml field NS) 11:45:06 0.9% NaCl I.V. 100 Adrián Duran Per physician ml/hr Christi Lester RN 11:55:03 Fentanyl I.V. 50 Adrián Duran for sedation mcg Christi Lester RN 11:55:10 Versed I.V. 1 mg Adrián Duran for sedation Christi Lester RN 12:04:29 Heparin Bolus I.V. 4000 Adrián Duran for units Christi Lester RN anticoagulation 12:04:42 Integrilin I.V. 7.9 Adrián Duran for (Bolus 2mg/ml) ml Christi Lester RN antiplatelet therapy 12:04:51 Integrilin wasted 2.1 Adrián Duran for (Bolus 2mg/ml) ml Christi Lester RN antiplatelet therapy 12:12:11 Plavix P.O. 600 Adrián Duran for mg Christi Lester RN antiplatelet therapy Procedure Log Time Note 10:25:49 Time tracking: Regular hours (M-F 7:00 - 5:00) 10:25:53 Plan of Care:Hemodynamics will remain stable., Cardiac rhythm will remain stable., Comfort level will be maintained., Respiratory function will remain adequate., Patient/ family verbilizes understanding of procedure., Procedure tolerated without complication., Recovers from procedure without complications.. 11:20:39 Roger Lester RN sent for patient. Start room use. 11:33:38 Patient received from Pre/Post Procedure Room to CCL 3 Alert and oriented. Tansferred to table in Supine position. 11:33:39 Warm blankets applied, and napoleon hugger turned on for patient comfort. 11:33:40 Correct patient and procedure confirmed by team. 11:33:41 Signed procedure consent form obtained from patient. 11:33:42 ECG and BP/O2 sat monitors applied to patient. 11:33:44 Full Disclosure recording started 11:39:26 Vital chart was started 11:44:19 Vital chart was stopped 11:44:20 Vital chart was started 11:44:38 Oxygen 2 l/min etCO2 Nasal cannula was administered by Roger Lester RN; Per physician; 11:44:43 Rhythm: sinus bradycardia 11:44:55 Heparin Flush Bag (1000units/500ml NS) 2 bags added to field was administered by Roger Lester RN; used for procedure; 11:44:57 H&P Date Dictated: 04/11/2018 Within 30 days and on chart., H&P Addendum completed by physician on day of procedure. (MUST COMPLETE FOR ALL OUTPATIENTS). 11:45:06 0.9% NaCl 100 ml/hr I.V. was administered by Roger Lester RN; Per physician; 11:45:19 Pre-procedure instructions explained to patient. 11:45:20 Pre-op teaching completed and patient verbalized understanding. 11:45:22 Family in patients room. 11:45:25 Patient NPO since Midnight. 11:45:39 Patient allergic to Morphine 11:45:41 Is the patient allergic to Iodine/contrast media? No. 11:45:43 Is patient on blood thinner?No 11:45:50 ACC The patient was administered the following blood thiners within the last 24 hours: ACCAspirin 11:45:53 Patient diabetic? No. 11:45:57 Previous problem with sedation/anesthesia? No ? 11:45:58 Snore? Yes 11:45:59 Sleep apnea? No 11:46:00 Deviated septum? No 11:46:00 Opens mouth fully? Yes 11:46:01 Sticks out tongue? Yes 11:46:02 Airway obstruction? Yes COPD 11:46:05 Dentures? Yes IN 11:46:11 Pre procedure: right dorsailis pedis pulse 2+ Normal; easily identifiable; not easily obliterated 11:46:13 Modified Aneesh's test Ulnar > 7 seconds. 11:46:16 Patient pain scale 0/10 ?. 11:46:22 IV patent on arrival in left forearm with 0.9% NaCl at O. 11:46:28 Lab results completed and on chart. 11:46:33 Right groin area was prepped with chlora-prep and draped in sterile fashion 11:46:34 Alarms reviewed by R. N. 11:46:35 Sharps counted by scrub and verified by R.N. 11:46:41 Use device set Femoral Dx 11:46:42 ACIST Syringe (61248) opened to sterile field. 11:46:43 Bag Decanter () opened to sterile field. 11:46:43 Medline Cath Pack ([id number]) opened to sterile field. 11:46:44 DIAGNOSTIC WIRE .035 260cm J wire ([id number]) opened to sterile field. 11:46:45 ACIST Hand Control (44024) opened to sterile field. 11:46:45 ACIST Manifold (83943) opened to sterile field. 11:46:46 DIAGNOSTIC Multipack 5Fr catheter set (SY2906) opened to sterile field. 11:46:47 Tegaderm 4 x 4 (1626W) opened to sterile field. 11:46:49 PERCUTANEOUS ENTRY 19GA needle opened to sterile field. 11:46:50 SHEATH Prelude 5Fr 0.035 (YHE-5W-11-035) opened to sterile field. 11:47:06 Physician paged 11:47:09 Baseline sample Acquired. 11:51:48 Zero performed for pressure channel P1 11:52:14 Zero performed for pressure channel P1 11:53:13 Final Timeout: patient, procedure, and site verified with staff and physician. All members of the team are in agreement. 11:53:15 Right groin site verified by team. 11:53:17 Physical assessment completed. ASA score P 2 - A patient with mild systemic disease as per Adrián Barraza MD. 11:53:20 Sedation plan: IV Moderate Sedation Medication:Versed, Fentanyl 11:55:03 Fentanyl 50 mcg I.V. was administered by Roger Lester RN; for sedation; 11:55:10 Versed 1 mg I.V. was administered by Roger Lester RN; for sedation; 11:56:29 Procedure started. 11:56:32 Local anesthetic to right femoral artery with Lidocaine 2% by Adrián Barraza MD.INITIAL ACCESS ONLY 11:56:40 A 5 Fr sheath was inserted into the Right Femoral artery 11:57:00 A MULTIPACK Pigtail 5 Fr catheter was advanced over the wire and used for LV Angiography. 11:57:39 LV gram done using SINGH 11:57:44 Injector settings: Ml/sec: 10, Volume: 20, 11:57:49 EF : 60 % 11:58:35 Catheter removed. 11:58:42 A MULTIPACK JL 4.0 5Fr catheter was advanced over the wire and used for Left Coronary Angiography. 11:59:21 Catheter removed. 11:59:47 A MULTIPACK 3DRC 5Fr catheter was advanced over the wire and used for Right Coronary Angiography. 12:00:22 Catheter removed. 12:00:42 Use device set TAU PCI 12:00:44 SHEATH Prelude 6Fr 0.035 (KQZ-5D-18-035) opened to sterile field. 12:00:47 INFLATOR Merit BasixCompak (TU9537) opened to sterile field. 12:00:52 CHOICE PT Extra Support 182cm wire ([id number]) opened to sterile field. 12:01:25 Sheath upsized to a 6 Fr Short. 12:02:10 GUIDE 6FR EBU 3.75 catheter ([id number]) opened to sterile field. 12:02:26 6 Fr EBU 3.75 guide catheter was inserted over the wire 12:03:11 CHOICE PT ES wire advanced. 12:04:21 Inflate balloon Inflation number: 1 A EUPHORA 3.0 x 15 Balloon ([id number]) was prepped and advanced across the Prox CX, then inflated to 17 KEAGAN for 0:06 (min:sec). 12:04:29 Heparin Bolus 4000 units I.V. was administered by Roger Lester RN; for anticoagulation; 12:04:35 Inflation number: 2 The EUPHORA 3.0 x 15 Balloon ([id number]) was reinflated across the Prox CX, to 17 KEAGAN for 0:09 (min:sec). 12:04:42 Integrilin (Bolus 2mg/ml) 7.9 ml I.V. was administered by Roger Lester RN; for antiplatelet therapy; 12:04:51 Integrilin (Bolus 2mg/ml) 2.1 ml wasted was administered by Roger Lester RN; for antiplatelet therapy; 12:04:58 Balloon removed over the wire. 12:06:43 Place stent Inflation Number: 3 A PAUL RX 3.0 x 26 stent ([id number]) was prepped and advanced across the Prox CX. The stent was deployed at 17 KEAGAN for 0:05 (min:sec). 12:07:01 Stent catheter was removed intact over wire. 12:07:02 Wire removed. 12:07:02 Guide catheter removed. 12:07:14 Sheath removed intact; hemostasis achieved with Exoseal to the Right Femoral artery. 12:07:19 Procedure ended.(Physican Out) 12:07:28 EXOSEAL 6Fr (EX600) opened to sterile field. 12:08:24 Fluoroscopy time 03.30 minutes. 12:08:28 Fluoroscopy dose: 229 mGy 12:08:28 Flurop Dose total: 229 12:08:31 Contrast amount:Isovue 300 90ml. 12:08:33 Sharps counted by scrub and verified by R.N. 12:08:34 Insertion/operative site no bleeding no hematoma. 12:08:36 Post-op/insertion site Right Femoral artery dressed using a 4 x 4 and Tegaderm. 12:08:40 Post right femoral artery:stable, clean and dry 12:08:49 Post Procedure Pulses reassessed and unchanged 12:08:56 Post-procedure physical assessment completed. ASA score P 2 - A patient with mild systemic disease as per Adrián Barraza MD. 12:08:59 Post procedure rhythm: unchanged. 12:09:06 Estimated blood loss: 10 ml 12:09:08 Post procedure instruction explained to patient.Patient verbalizes understanding. 12:09:09 Patient needs reinforcement of post procedure teaching. 12:09:20 Procedure type changed to Cath procedure, Diagnostic procedure, LHC, LHC w/Coronaries, PCI procedure, Coronary Stent, Coronary Stent Initial 12:11:09 Procedure and supply charges have been captured, reviewed, submitted and are correct. 12:11:14 Procedure Complication : No complications 12:11:16 See physician's report for complete and final results. 12:11:24 Report given to Pre/Post Procedure Room. 12:11:28 Patient transfered to Pre/Post Procedure Room with Stretcher. 12:11:36 Procedure ended. 12:11:36 Full Disclosure recording stopped 12:11:39 End room use (Document Last) 12:12:11 Plavix 600 mg P.O. was administered by Roger Lester RN; for antiplatelet therapy; 12:13:30 Vital chart was stopped Intervention Summary Intervention Notes Time ActionType Lesion and Equipment Used Action# Pressure Duration Attributes 12:04:21 Inflate Prox CX EUPHORA 3.0 x 1 17 00:06 balloon 15 Balloon ([id number]) 12:04:35 Reinflate Prox CX EUPHORA 3.0 x 2 17 00:09 balloon 15 Balloon ([id number]) 12:06:43 Place stent Prox CX PAUL RX 3.0 x 3 17 00:05 26 stent ([id number]) Device Usage Item Name Manufacture Quantity Catalog Number Hospital Part Current Minimal Lot# / Charge Number Stock Stock Serial# Code ACIST Syringe Acist 1 19739 465472 [id number] [id number] 20 (59767) [employer] Bag Decanter Microtek 1 2002S 086070 35619 550067 5 (2001S) Medical Inc. Medline Cath Cardinal 1 [id number] 998163 90514 619156 5 Pack Health ([id number]) DIAGNOSTIC WIRE [place] 1 208293 300423 604813 196900 30 .035 260cm J wire (398708) ACIST Hand Acist 1 87945 760423 062611 872865 5 Control (12466) Medical Systems Inc ACIST Manifold Acist 1 42574 279404 690879 906926 5 (53412) [employer] Inc DIAGNOSTIC Cardinal 1 [id number] 887028 42339 460784 30 Multipack 5Fr Health catheter set ([id number]) Tegaderm 4 x 4 3M 1 1626W 067897 635458 838911 5 (1626W) PERCUTANEOUS [employer] Medical 1 [id number] 952189 400183 5 ENTRY 19GA needle SHEATH Prelude Merit 1 AFM-6Y-26-035 580877 504348 157631 5 5Fr 0.035 Medical (IHJ-1V-82-035) MULTIPACK Cardinal 1 172453 5 Pigtail 5 Fr Health catheter MULTIPACK JL Cardinal 1 [id number] 5 4.0 5Fr Health catheter MULTIPACK 3DRC Cardinal 1 669739 5 5Fr catheter Health SHEATH Prelude Merit 1 UAS-0B-91-35 635497 9948511 461753 5 6Fr 0.035 Medical (LPI-7S-59-035) INFLATOR Merit Merit 1 EK2384 691974 951992 221635 15 [facility] [employer] ([id number]) CHOICE PT Extra [place] 1 [id number] 200680 231186 538582 5 Support 182cm Scientific wire ([id number]) GUIDE 6FR EBU Medtronic 1 [id number] 158174 31078 401282 1 3.75 catheter ([id number]) EUPHORA 3.0 x Medtronic 1 [id number] 017573 546843 458056 5 [id number] 15 Balloon ([id number]) PAUL RX 3.0 x Medtronic 1 [id number] 291153 7726754 496795 5 [id number] 26 stent ([id number]) EXOSEAL 6Fr Cardinal 1 EX600 182920 764505 769555 10 (EX600) Health Signature Audit [place] Stage Time Signature Unsigned Intra-Procedure 05/09/2018 Eva 12:13:27 PM Counts RT(R) Signatures Monitor : Eva Signature : Counts RT Date : Time : [address] [place] [address]
[~2018-05-09 08:40] MED LIST: AZELASTINE137 MCG/0. NASAL; BAYER CHEWABLE81 MG PO; CARDURA8 MG PO; MYSOLINE 50 MG50 MG PO; NEURONTIN 300300 MG PO; SINGULAIR10 MG PO; SPIRIVA18 MCG INH; SYMBICORT 16010.2 GM INH; SYNTHROID75 MCG PO; TEMOVATE 0.05%15 G1 TOPICAL; VENTOLIN HFA18 GM INH; ZANTAC150 MG PO
[2018-05-09] MEDS ORDERED: NORVASC5 MG PO (09:15)
[2018-05-09 09:25] VITALS: BP 174/74; Ht 185.4 cm; Wt 84.5 kg
[2018-05-09 09:59] LABS: BASOPHILS 0.2 % (0-2); EOSINOPHILS 4.8 % (0-7); HEMATOCRIT 36.2 % (42.0-54.0); HEMOGLOBIN 12.6 g/dL (13.5-17.5); IMMATURE GRANULOCYTES 0.2 % (0-5); LYMPHOCYTES 40.6 % (15-50); MCH 31.3 pg (26.0-34.0); MCHC 34.8 g/dL (31.0-37.0); MEAN PLATELET VOLUME 10.1 fL (7.4-10.4); MONOCYTES 7.9 % (2-11); NEUTROPHILS 46.3 % (40-80); PLATELET COUNT 149 10x3/uL (130-400); RBC 4.02 10x6/uL (4.20-6.10); RDW 13.2 % (11.5-14.5); WBC 4.8 10x3/uL (4.8-10.8)
[2018-05-09 10:00] LABS: CALCIUM 8.8 mg/dL (8.5-10.1); CARBON DIOXIDE 27.1 mmol/L (21.0-32.0); CREATININE - SERUM 1.3 mg/dL (0.6-1.3); POTASSIUM - SERUM 4.1 mmol/L (3.5-5.1)
[2018-05-09] MEDS ORDERED: PLAVIX75 MG PO (13:46)
== END 2018-05-09 16:30 | disposition home or self-care (01) ==
LOC: D.CATH 08:40
PROVIDERS: Internal Medicine Interventional Cardiology
DX: I25.119 Atherosclerotic heart disease of native coronary artery with unspecified angina pectoris (principal); Z01.812 Encounter for preprocedural laboratory examination
CPT/HCPCS: 93458; C9600

== ENCOUNTER 2018-05-14 09:29 | Outpatient (CLI) | payer MEDICARE, OTHER ==
[~2018-05-14] VITALS: Ht 185.4 cm; Wt 84.5 kg
--- NOTE | ~2018-05-14 | HEMODYNAMI ---
PATIENT:MYLENE ZABALA MEDICAL RECORD: [id number] : [birth year] LOCATION:[facility] ADMISSION DATE: 05/14/18 Generatedon:05/14/201812:27 Patient name: MYLENE ZABALA Patient #: [id number] SSN: D OB: 1930 Date of study: 05/14/2018 Page: Of Hemodynamic Procedure Report Patient Data Patient Demographics Procedure consent was obtained First Name: MYLENE Gender: Male Last Name: SAGRARIO : 1930 [facility] Initial: DAVID Age: 87 year(s) Patient #: [id number] Race: Unknown Additional ID: [id number] Contact details [address]: [address] [place] [address] State: [place] City: [place] Zip code: [address] Past Medical History Allergies Allergen Reaction Date Comments Reported Morphine 05/09/2018 Admission Admission Data Admission Date: 05/14/2018 Admission Time: 9:29 Procedure Procedure Types Cath Procedure Diagnostic Procedure Sedation Charges Moderate Sedation up to 15 minutes PCI Procedure Coronary Stent Coronary Stent Initial Procedure Description Procedure Date Procedure Date: 05/14/2018 Procedure Start Time: 12:13 Procedure End Time: 12:23 Procedure Staff Name Function Adrián Barraza MD Performing Physician Vicky Sanz RT Monitor Roger Lester RN Nurse Anju Pitt RT Scrub Procedure Data Cath Procedure Fluoroscopy Diagnostic fluoroscopy Total fluoroscopy Time: 3.8 time: 3.8 min min Diagnostic fluoroscopy Total fluoroscopy dose: 363 dose: 363 mGy mGy Contrast Material Contrast Material Type Amount (ml) Isovue 300 50 Entry Location Entry Primary Successful Side Size Upsize Upsize Entry Closure Succes sful Closure Location (Fr) 1 (Fr) 2 (Fr) Remarks Device Remarks Femoral Right 7 Fr Exoseal artery Short Estimated blood loss: 10 ml Procedure Complications No complications Procedure Medications Medication Administration Route Dosage Oxygen etCO2 Nasal cannula 2 l/min Heparin Flush Bag added to field 2 bags (1000units/500ml NS) 0.9% NaCl I.V. 100 ml/hr Fentanyl I.V. 50 mcg Versed I.V. 1 mg Heparin Bolus I.V. 4000 units Hemodynamics Rest Heart Rate: 58 (bpm) Snapshots Pre Cath Intra NCS Post Cath Vital Signs Time Heart Resp SPO2 etCO2 NIBP (mmHg) Rhythm Pain Sedation Rate (ipm) (%) (mmHg) Status Level (bpm) 12:06:40 62 16 97 30.8 Measuring NSR 0 (11) 10(A) , No pain 12:08:04 68 17 97 31.5 Time NSR 0 (11) 10(A) Exceeded , No pain 12:13:03 56 16 98 0 Measuring NSR 0 (11) 9(A) , No pain 12:14:27 59 16 84 0 Time NSR 0 (11) 9(A) Exceeded , No pain 12:17:01 63 16 92 0 Measuring NSR 0 (11) 9(A) , No pain 12:18:00 60 17 96 0 142/63(115) NSR 0 (11) 9(A) , No pain 12:22:20 59 17 94 0 147/68(131) NSR 0 (11) 9(A) , No pain 12:26:45 59 8 93 0 155/65(122) NSR 0 (11) 9(A) , No pain Medications Time Medication Route Dose Verified Delivered Reason Notes Effectiveness by by 12:07:16 Oxygen etCO2 2 Adrián Duran Per physician Nasal l/min Christi Lester RN cannula 12:07:24 Heparin Flush added 2 Adrián Duran used for Bag to bags Christi Lester RN procedure (1000units/500ml field NS) 12:07:34 0.9% NaCl I.V. 100 Adrián Duran Per physician ml/hr Christi Lester RN 12:07:43 Fentanyl I.V. 50 Adrián Duran for sedation mcg Christi Lester RN 12:07:50 Versed I.V. 1 mg Adrián Duran for sedation Christi Lester RN 12:13:26 Heparin Bolus I.V. 4000 Adrián Duran for units Christi Lester RN anticoagulation Procedure Log Time Note 11:45:52 Roger Lester RN sent for patient. Start room use. 11:58:40 Diagnostic Cath status Elective 11:58:57 Time tracking: Regular hours (M-F 7:00 - 5:00) 11:59:02 Plan of Care:Hemodynamics will remain stable., Cardiac rhythm will remain stable., Comfort level will be maintained., Respiratory function will remain adequate., Patient/ family verbilizes understanding of procedure., Procedure tolerated without complication., Recovers from procedure without complications.. 11:59:07 Patient received from Pre/Post Procedure Room to CCL 2 Alert and oriented. Tansferred to table in Supine position. 11:59:08 Warm blankets applied, and napoleon hugger turned on for patient comfort. 11:59:08 Correct patient and procedure confirmed by team. 11:59:10 Signed procedure consent form obtained from patient. 11:59:21 H&P Date Dictated: 05/14/2018 Within 30 days and on chart., H&P Addendum completed by physician on day of procedure. (MUST COMPLETE FOR ALL OUTPATIENTS). 11:59:24 Family in waiting room. 11:59:26 Patient NPO since Midnight. 12:04:52 Baseline sample Acquired. 12:04:52 ECG and BP/O2 sat monitors applied to patient. 12:04:52 Vital chart was started 12:04:59 Rhythm: sinus rhythm 12:05:00 Full Disclosure recording started 12:05:00 Pre-procedure instructions explained to patient. 12:05:01 Pre-op teaching completed and patient verbalized understanding. 12:05:03 Is the patient allergic to Iodine/contrast media? No. 12:05:04 Was the patient premedicated? No 12:05:05 Is patient on blood thinner?Yes 12:05:07 ACC The patient was administered the following blood thiners within the last 24 hours: ACCPlavix 12:05:09 Patient diabetic? No. 12:05:11 Previous problem with sedation/anesthesia? No ? 12:05:12 Snore? Yes 12:05:13 Sleep apnea? No 12:05:14 Deviated septum? No 12:05:17 Opens mouth fully? Yes 12:05:17 Sticks out tongue? Yes 12:05:19 Airway obstruction? No ? 12:05:23 Dentures? Yes in tight 12:05:30 Patient pain scale 0/10 ?. 12:05:37 IV patent on arrival in left forearm with 0.9% NaCl at [facility]. 12:05:40 Lab results completed and on chart. 12:05:43 Right groin area was prepped with chlora-prep and draped in sterile fashion 12:05:44 Sharps counted by scrub and verified by R.N. 12:05:44 Alarms reviewed by R. N. 12:05:46 Physician arrived 12:05:47 --------ALL STOP TIME OUT------ 12:05:47 Final Timeout: patient, procedure, and site verified with staff and physician. All members of the team are in agreement. 12:05:50 Left groin site verified by team. 12:05:52 Physical assessment completed. ASA score P 2 - A patient with mild systemic disease as per Adrián Barraza MD. 12:05:55 Sedation plan: IV Moderate Sedation Medication:Versed, Fentanyl 12:07:16 Oxygen 2 l/min etCO2 Nasal cannula was administered by Roger Lester RN; Per physician; 12:07:24 Heparin Flush Bag (1000units/500ml NS) 2 bags added to field was administered by Roger Lester RN; used for procedure; 12:07:34 0.9% NaCl 100 ml/hr I.V. was administered by Roger Lester RN; Per physician; 12:07:43 Fentanyl 50 mcg I.V. was administered by Roger Lester RN; for sedation; 12:07:50 Versed 1 mg I.V. was administered by Roger Lester RN; for sedation; 12:10:55 Use device set Femoral Dx 12:13:16 ACIST Syringe (37055) opened to sterile field. 12:13:16 Bag Decanter (2001S) opened to sterile field. 12:13:18 Medline Cath Pack ([id number]) opened to sterile field. 12:13:20 DIAGNOSTIC WIRE .035 260cm J wire (256171) opened to sterile field. 12:13:21 ACIST Hand Control (45577) opened to sterile field. 12:13:22 ACIST Manifold (16238) opened to sterile field. 12:13:24 Tegaderm 4 x 4 (1626W) opened to sterile field. 12:13:26 Heparin Bolus 4000 units I.V. was administered by Roger Lester RN; for anticoagulation; 12:13:26 PERCUTANEOUS ENTRY 19GA needle opened to sterile field. 12:13:30 SHEATH 7FR [place] (FNU594) opened to sterile field. 12:13:31 INFLATOR Merit BasixCompak (IS9221) opened to sterile field. 12:13:33 CHOICE PT Extra Support 182cm wire ([id number]) opened to sterile field. 12:13:34 GUIDE 7FR HS II SH catheter ([id number]) opened to sterile field. 12:13:39 Procedure started. 12:13:54 Local anesthetic to left femerol artery with Lidocaine 2% by Adrián Barraza MD.INITIAL ACCESS ONLY 12:14:07 A 7 Fr Short sheath was inserted into the Right Femoral artery 12:14:13 Proceeding to intervention. 12:14:24 7 Fr HS11 guide catheter was inserted over the wire 12:14:32 chocie pt ex wire advanced. 12:14:33 Wire advanced across lesion. 12:15:10 Vital chart was stopped 12:15:11 Vital chart was started 12:15:52 Inflate balloon Inflation number: 1 A EUPHORA 3.0 x 20 Balloon ([id number]) was prepped and advanced across the Mid RCA, then inflated to 17 KEAGAN for 0:04 (min:sec). 12:16:16 Multiple inflations to 17 throughout the mid RCA 12:17:27 Place stent Inflation Number: 2 A PAUL RX 3.0 x 38 stent ([id number]) was prepped and advanced across the Mid RCA. The stent was deployed at 17 KEAGAN for 0:17 (min:sec). 12:18:05 Stent catheter was removed intact over wire. 12:20:20 Place stent Inflation Number: 1 A PAUL RX 3.0 x 22 stent ([id number]) was prepped and advanced across the Prox RCA. The stent was deployed at 17 KEAGAN for 0:00 (min:sec). 12:20:32 EXOSEAL 7Fr (EX700) opened to sterile field. 12:20:59 Wire removed. 12:21:01 Guide catheter removed. 12:21:13 Sheath removed intact; hemostasis achieved with Exoseal to the Right Femoral artery. 12:21:15 Procedure ended.(Physican Out) 12:22:04 Fluoroscopy time 03.80 minutes. 12:22:09 Flurop Dose total: 363 12:22:09 Fluoroscopy dose: 363 mGy 12:22:13 Contrast amount:Isovue 300 50ml. 12:22:15 Sharps counted by scrub and verified by R.N. 12:22:16 Insertion/operative site no bleeding no hematoma. 12:22:19 Post Procedure Pulses reassessed and unchanged 12::23 Post-procedure physical assessment completed. ASA score P 2 - A patient with mild systemic disease as per Adrián Barraza MD. 12:22:28 Post procedure rhythm: unchanged. 12:22:31 Estimated blood loss: 10 ml 12:22:33 Post procedure instruction explained to patient.Patient verbalizes understanding. 12:22:44 Procedure type changed to Cath procedure, Diagnostic procedure, Sedation Charges, Moderate Sedation up to 15 minutes, PCI procedure, Coronary Stent, Coronary Stent Initial 12::46 Procedure and supply charges have been captured, reviewed, submitted and are correct. 12:23:12 Procedure Complication : No complications 12:23:19 Patient transfered to Pre/Post Procedure Room with Stretcher. 12:23:20 Procedure ended. 12:23:20 Full Disclosure recording stopped 12:23:23 End room use (Document Last) 12:27:32 Vital chart was stopped Intervention Summary Intervention Notes Time ActionType Lesion and Equipment Used Action# Pressure Duration Attributes 12:15:52 Inflate Mid RCA EUPHORA 3.0 x 1 17 00:04 balloon 20 Balloon ([id number]) 12:17:27 Place stent Mid RCA PAUL RX 3.0 x 2 17 00:17 38 stent ([id number]) 12:20:20 Place stent Prox RCA PAUL RX 3.0 x 1 17 00:00 22 stent ([id number]) Device Usage Item Name Manufacture Quantity Catalog Number Hospital Part Current M inimal Lot# / Charge Number Stock Stock Serial# Code ACIST Syringe Acist 1 94281 480763 538307 459785 2 0 (75451) Medical Systems Inc Bag Decanter Microtek 1 680227 68156 933350 5 () Medical Inc. Medline Cath Cardinal 1 [id number] 409086 80119 725062 5 [facility] ([id number]) DIAGNOSTIC [place] 1 395250 195368 357408 227379 3 0 WIRE .035 260cm J wire (988232) ACIST Hand Acist 1 12195 680119 523959 012081 5 Control Medical (95083) Systems Inc ACIST Manifold Acist 1 38385 030699 929734 045273 5 (28361) Medical Systems Inc Tegaderm 4 x 4 3M 1 1626W 461811 735918 330342 5 (1626W) PERCUTANEOUS Cook Medical 1 J26678 423744 905053 5 ENTRY 19GA needle SHEATH 7FR Terumo 1 UJL493 018945 206084 096121 5 [place] (NGX475) INFLATOR Merit Merit 1 UN5936 202841 703730 135295 1 5 [employer]-PRO Solutions (EW2876) CHOICE PT Beryl 1 [id number] 450073 176333 354384 5 Extra Support Scientific 182cm wire ([id number]) GUIDE 7FR HS Medtronic 1 [id number] 489309 833893 383668 0 II SH catheter ([id number]) EUPHORA 3.0 x Medtronic 1 [id number] 254429 070358 167643 5 [id number] 20 Balloon ([id number]) PAUL RX 3.0 x Medtronic 1 [id number] 401532 9217271 407805 5 [id number] 38 stent ([id number]) PAUL RX 3.0 x Medtronic 1 [id number] 720121 3693535 329444 5 [id number] 22 stent ([id number]) EXOSEAL 7Fr Cardinal 1 EX700 181164 364998 811315 5 (EX700) Health Signature Audit [place] Stage Time Signature Unsigned Intra-Procedure 05/14/2018 Vicky Sanz 12:27:28 PM RT(R) Signatures Monitor : Vicky Sanz Signature : RT Date : Time : [facility] [address] [place] [address]
--- NOTE | ~2018-05-14 | OP ---
PATIENT NAME: MYLENE ZABALA MEDICAL RECORD: [id number] :[birth year] LOCATION:[facility] ADMISSION DATE: SURGEON: PATRICE LAIRD MD DATE OF OPERATION: 05/14/2018 PROCEDURES: 1. PTCA and stent, RCA. 2. Selective coronary angiography. INDICATIONS: Angina and coronary disease. PROCEDURE IN DETAIL: After informed consent was obtained and after detailed description of risks and benefits as well as alternative therapies, the patient elected to proceed with angiogram and angioplasty. The left femoral area was prepped and draped in normal sterile fashion. The left femoral artery was cannulated via modified Seldinger technique with placement of 6-Japanese sheath. All catheter was exchanged through the sheath. FINDINGS: The right coronary has multiple areas of 80+ percent stenosis. This was addressed with a 3.0 x 38 and 3.0 x 22 both Arthur stents. Result was 0% residual. IMPRESSION: Successful PTCA and stent of the RCA, going from multiple areas of 80+ percent stenosis to 0% residual stenosis. TRANSINT:[id number] Voice Confirmation ID: [id number] DOCUMENT ID: [id number] PATRICE LAIRD MD at 1005 CC: [id number] DICTATION DATE: 05/14/18 1224 SMALL PIECE CUTTER: 05/14/18 1356 DEP CLI 05/14/[address] [address]
--- NOTE | ~2018-05-14 | HP ---
PATIENT: MYLENE ZABALA MEDICAL RECORD: [id number] ACCOUNT: [id number] LOCATION:[facility] : [birth year] ADMISSION DATE: 05/14/18 HISTORY AND PHYSICAL EXAMINATION DATE OF SERVICE: 05/14/2018 ADMITTING DIAGNOSES: 1. Angina. 2. Coronary artery disease. 3. Recent PTCA stent of left circumflex with concomitant disease of LAD and RCA. HISTORY OF PRESENT ILLNESS: This is a gentleman who presents with anginal symptomatology, found to have severe 3-vessel coronary artery disease, underwent PTCA stent of the left circumflex. He is now brought back for PTCA stent of the LAD and RCA. REVIEW OF SYSTEMS: The patient reports easy bruising but reports no swollen glands. The patient reports no fever, no night sweats, no significant weight gain, no significant weight loss. No significant exercise tolerance. The patient reports no dry eyes, no irritation, no vision change. Patient reports no difficulty hearing and no ear pain. Patient reports no frequent nose bleeds or nose and sinus problems. Patient reports on arm pain on exertion. No shortness of breath while lying down. No history of heart murmur. Patient reports no cough, no wheezing or coughing up blood. Patient reports no abdominal pain, no vomiting. Normal appetite. No diarrhea and not vomiting blood. No nausea and no constipation. Patient reports no incontinence. No difficulty urinating. No hematuria. No increased frequency. Patient reports no muscle aches. No weakness, no arthralgias, no back pain. No swelling of the extremities. Patient reports no abnormal mole, no jaundice, no rashes. Reports no loss of consciousness. No weakness and no numbness. No seizures, dizziness, or headaches. The patient reports no depression, no sleep disturbance, feeling safe in a relationship and no alcohol abuse. Patient reports on fatigue. Reports no runny nose or sinus pressure. No itching, no hives, and no frequent sneezing. PHYSICAL EXAMINATION: GENERAL APPEARANCE: Well-nourished, well-developed, appears stated age. Level of distress, comfortable. PSYCHIATRIC: Mental status, alert, normal affect. Orientation, oriented to time, place and person. EYES: Lids and conjunctiva, noninjected. No discharge, no pallor. ENT: Lips, teeth, gums, normal dentition. Oropharynx, no cyanosis, no pallor. NECK: Carotid arteries, bilateral normal upstroke, no bruits, no thrills. JUGULAR VEINS: No jugular venous pressure or distention. CERVICAL LYMPH NODES: Nontender, nonenlarged. THYROID: Not enlarged. Nontender. No nodules. LUNGS: Respiratory effort, unlabored. CHEST: Normal curvature. No thoracic deformity. No chest wall tenderness. Percussion, resonant. Auscultation, clear. No wheezes, no rales, no rhonchi. CARDIOVASCULAR: Precordial exam, nondisplaced. No heaves or pericardial thrills. Rate and rhythm, regular. Heart sounds, normal S1, normal S2. No S3, no gallop, no rub. Systolic murmur, not heard. Diastolic murmur, not heard. EXTREMITIES: No cyanosis, no edema. Peripheral pulses, full and equal in all HISTORY AND PHYSICAL [id number] MYLENE ZABALA extremities, except as noted. No bruits appreciated. ABDOMEN: Soft, nondistended. Normal aorta. No bruit. Nontender. No masses. Liver, nontender, no hepatomegaly. Spleen, nontender, no splenomegaly. MUSCULOSKELETAL: No joint tenderness. No joint swelling. No erythema. NEUROLOGICAL: Normal gait, normal strength, normal tone. SKIN: Warm and dry. OVERALL IMPRESSION: Anginal symptomatology with significant disease of the left anterior descending and right coronary artery. We will proceed with transcatheter revascularization of these territories. TRANSINT:[id number] Voice Confirmation ID: [id number] DOCUMENT ID: [id number] PATRICE LAIRD MD at 1005 CC: [id number] DICTATION DATE: 05/14/18 1223 MUTUAL FUNDS AGENT: 05/14/18 1237 DEP CLI 05/14/18 [address] [id number] [place] [address]
[~2018-05-14 09:29] MED LIST changes: +NORVASC5 MG PO; +PLAVIX75 MG PO
[2018-05-14 10:29] VITALS: BP 175/69; Ht 185.4 cm; Wt 84.5 kg
[2018-05-14 10:45] LABS: BASOPHILS 0.2 % (0-2); EOSINOPHILS 5.8 % (0-7); HEMATOCRIT 34.6 % (42.0-54.0); LYMPHOCYTES 31.4 % (15-50); MCH 31.5 pg (26.0-34.0); MCHC 34.7 g/dL (31.0-37.0); MCV 90.8 fL (80.0-100.0); MEAN PLATELET VOLUME 9.8 fL (7.4-10.4); MONOCYTES 8.7 % (2-11); NEUTROPHILS 53.9 % (40-80); PLATELET COUNT 154 10x3/uL (130-400); RBC 3.81 10x6/uL (4.20-6.10); RDW 13.2 % (11.5-14.5); WBC 4.6 10x3/uL (4.8-10.8)
[2018-05-14 11:10] LABS: ANION GAP 10.5 mmol/L (8-16); CALCIUM 9.4 mg/dL (8.5-10.1); CARBON DIOXIDE 26.8 mmol/L (21.0-32.0); CREATININE - SERUM 1.3 mg/dL (0.6-1.3); POTASSIUM - SERUM 4.3 mmol/L (3.5-5.1)
== END 2018-05-14 17:00 ==
LOC: D.CATH 09:29
PROVIDERS: Internal Medicine Interventional Cardiology
DX: I25.119 Atherosclerotic heart disease of native coronary artery with unspecified angina pectoris (principal); Z95.5 Presence of coronary angioplasty implant and graft; Z01.812 Encounter for preprocedural laboratory examination

== ENCOUNTER 2018-05-16 08:24 | Outpatient (CLI) | payer MEDICARE, OTHER ==
[~2018-05-16] VITALS: Ht 185.4 cm; Wt 84.5 kg
--- NOTE | ~2018-05-16 | OP ---
PATIENT NAME: MYLENE ZABALA MEDICAL RECORD: [id number] :[birth year] LOCATION:D.CAT ADMISSION DATE: SURGEON: PATRICE LAIRD MD DATE OF OPERATION: 05/16/2018 PROCEDURES: 1. PTCA and stent of LAD. 2. Selective coronary angiography. INDICATIONs: Angina and coronary artery disease. PROCEDURE IN DETAIL: After informed consent was obtained and after detailed explanation of risks, benefits as well as alternative therapies, the patient elected to proceed with angiogram and angioplasty. The left femoral area was prepped and draped in normal sterile fashion. Left femoral artery was cannulated via modified Seldinger technique with placement of 6-Setswana sheath. All catheters exchanged through this sheath. FINDINGS: The left anterior descending has 2 areas proximally of 90+ percent stenosis, addressed with a 3.5 x 22 and a 3.0 x 8, both Arthur stents. Result was 0% residual stenosis. OVERALL IMPRESSION: Successful PTCA and stent of the LAD going from 90% initial stenosis times 2 to 0% residual. TRANSINT:[id number] Voice Confirmation ID: [id number] DOCUMENT ID: [id number] PATRICE LAIRD MD at 1710 CC: [id number] DICTATION DATE: 05/16/18 1132 JACK MACHINE OPERATOR: 05/16/18 1139 DEP CLI 05/16/[address] [address]
--- NOTE | ~2018-05-16 | HEMODYNAMI ---
PATIENT:MYLENE ZABALA MEDICAL RECORD: [id number] : [birth year] LOCATION:[facility] ADMISSION DATE: 05/16/18 Generatedon:05/16/201811:28 Patient name: MYLENE ZABALA Patient #: [id number] SSN: D OB: 1930 Date of study: 05/16/2018 Page: Of Hemodynamic Procedure Report Patient Data Patient Demographics Procedure consent was obtained First Name: MYLENE Gender: Male Last Name: SAGRARIO : 1930 [facility] Initial: DAVID Age: 87 year(s) Patient #: [id number] Race: Unknown Additional ID: [id number] Contact details [address]: [address] [place] [address] State: [place] City: [place] Zip code: [address] Past Medical History Allergies Allergen Reaction Date Comments Reported Morphine 05/09/2018 Admission Admission Data Admission Date: 05/16/2018 Admission Time: 8:24 Procedure Procedure Types Cath Procedure Diagnostic Procedure Sedation Charges Moderate Sedation up to 15 minutes PCI Procedure Coronary Stent Coronary Stent Initial Procedure Description Procedure Date Procedure Date: 05/16/2018 Procedure Start Time: 11:12 Procedure End Time: 11:25 Procedure Staff Name Function Adrián Barraza MD Performing Physician Anju Pitt RT Monitor Roger Lester RN Nurse Vicky Sanz RT Scrub Procedure Data Cath Procedure Fluoroscopy Diagnostic fluoroscopy Total fluoroscopy Time: 5.2 time: 5.2 min min Diagnostic fluoroscopy Total fluoroscopy dose: 674 dose: 674 mGy mGy Contrast Material Contrast Material Type Amount (ml) Isovue 300 99 Entry Location Entry Primary Successful Side Size Upsize Upsize Entry Closure Succes sful Closure Location (Fr) 1 (Fr) 2 (Fr) Remarks Device Remarks Femoral Left 6 Fr Exoseal artery Short Estimated blood loss: 5 ml Procedure Complications No complications Procedure Medications Medication Administration Route Dosage Oxygen etCO2 Nasal cannula 2 l/min 0.9% NaCl I.V. 100 ml/hr Heparin Flush Bag added to field 2 bags (1000units/500ml NS) Fentanyl I.V. 50 mcg Versed I.V. 1 mg Heparin Bolus I.V. 4000 units Fentanyl I.V. 50 mcg Versed I.V. 1 mg Hemodynamics Rest Heart Rate: 60 (bpm) Snapshots Pre Cath Intra NCS Post Cath Vital Signs Time Heart Resp SPO2 etCO2 NIBP (mmHg) Rhythm Pain Sedation Rate (ipm) (%) (mmHg) Status Level (bpm) 10:33:39 59 16 96 178/74(138) NSR 0 (11) 10(A) , No pain 10:38:11 57 17 98 30.6 181/66(142) NSR 0 (11) 10(A) , No pain 10:42:41 55 17 98 30.6 165/71(126) NSR 0 (11) 10(A) , No pain 10:47:57 55 16 94 0 145/64(121) NSR 0 (11) 10(A) , No pain 10:52:17 56 16 96 0 148/61(118) NSR 0 (11) 10(A) , No pain 10:56:37 56 16 97 0 148/66(113) NSR 0 (11) 10(A) , No pain 11:00:57 54 16 96 0 144/61(113) NSR 0 (11) 10(A) , No pain 11:05:17 53 17 96 0 146/64(119) NSR 0 (11) 10(A) , No pain 11:09:35 54 16 95 0 152/68(125) NSR 0 (11) 9(A) , No pain 11:14:59 51 17 76 0 142/66(104) NSR 0 (11) 9(A) , No pain 11:19:17 62 16 76 0 134/64(110) NSR 0 (11) 9(A) , No pain 11:23:31 62 16 90 0 138/67(125) NSR 0 (11) 9(A) , No pain 11:26:31 64 17 85 0 130/66(127) NSR 0 (11) 9(A) , No pain Medications Time Medication Route Dose Verified Delivered Reason Notes Effectiveness by by 10:34:39 Oxygen etCO2 2 Adrián Duran Per physician Nasal l/min Christi Lester RN cannula 10:34:48 0.9% NaCl I.V. 100 Adrián Duran Per physician ml/hr Christi Lester RN 10:34:55 Heparin Flush added 2 Adrián Duran used for Bag to bags Christi Lester rn navigator (1000units/500ml field NS) 11:08:55 Fentanyl I.V. 50 Adrián Roger for sedation mcg Christi Lester RN 11:09:36 Versed I.V. 1 mg Adrián Duran for sedation Christi Lester RN 11:16:38 Heparin Bolus I.V. 4000 Adrián Bennetty for units Christi Lester RN anticoagulation 11:16:43 Fentanyl I.V. 50 Adrián Duran for sedation mcg Christi Lester RN 11:16:48 Versed I.V. 1 mg Adrián Duran for sedation Christi Lester RN Procedure Log Time Note 10:10:20 Vicky Sanz RT(R) sent for patient. Start room use. 10:23:28 Time tracking: Regular hours (M-F 7:00 - 5:00) 10:23:33 Plan of Care:Hemodynamics will remain stable., Cardiac rhythm will remain stable., Comfort level will be maintained., Respiratory function will remain adequate., Patient/ family verbilizes understanding of procedure., Procedure tolerated without complication., Recovers from procedure without complications.. 10:23:49 Patient received from Pre/Post Procedure Room to CCL 2 Alert and oriented. Tansferred to table in Supine position. 10:23:50 Warm blankets applied, and napoleon hugger turned on for patient comfort. 10:23:50 Correct patient and procedure confirmed by team. 10:23:52 Signed procedure consent form obtained from patient. 10:23:52 ECG and BP/O2 sat monitors applied to patient. 10:32:22 Vital chart was started 10:32:27 Rhythm: sinus rhythm 10:32:29 Full Disclosure recording started 10:33:30 Baseline sample Acquired. 10:33:51 H&P Date Dictated: 05/16/2018 Within 30 days and on chart.. 10:33:52 Pre-procedure instructions explained to patient. 10:33:53 Pre-op teaching completed and patient verbalized understanding. 10:33:54 Family in waiting room. 10:33:55 Patient NPO since Midnight. 10:33:57 Is the patient allergic to Iodine/contrast media? No. 10:33:58 Was the patient premedicated? No 10:33:59 Is patient on blood thinner?Yes 10:34:01 ACC The patient was administered the following blood thiners within the last 24 hours: ACCPlavix 10:34:03 Patient diabetic? No. 10:34:07 Previous problem with sedation/anesthesia? No ? 10:34:14 Snore? Yes 10:34:15 Sleep apnea? No 10:34:15 Deviated septum? No 10:34:16 Opens mouth fully? Yes 10:34:17 Sticks out tongue? Yes 10:34:21 Airway obstruction? Yes copd 10:34:25 Dentures? Yes in tight 10:34:28 Pre procedure: right dorsailis pedis pulse 1+ Palpable, but thready & weak; easily obliterated 10:34:30 Pre procedure: left dorsailis pedis pulse 1+ Palpable, but thready & weak; easily obliterated 10:34:32 Patient pain scale 0/10 ?. 10:34:36 IV patent on arrival in left forearm with 0.9% NaCl at [facility]. 10:34:39 Oxygen 2 l/min etCO2 Nasal cannula was administered by Roger Lester RN; Per physician; 10:34:39 Lab results completed and on chart. 10:34:43 Left groin area was prepped with chlora-prep and draped in sterile fashion 10:34:44 Alarms reviewed by R. N. 10:34:44 Sharps counted by scrub and verified by R.N. 10:34:48 0.9% NaCl 100 ml/hr I.V. was administered by Roger Lester RN; Per physician; 10:34:55 Heparin Flush Bag (1000units/500ml NS) 2 bags added to field was administered by Roger Lester RN; used for procedure; 10:48:22 Use device set Radial Dx or PCI 10:48:23 ACIST Syringe (48618) opened to sterile field. 10:48:24 Medline Cath Pack ([id number]) opened to sterile field. 10:48:24 Bag Decanter (2002) opened to sterile field. 10:48:25 DIAGNOSTIC WIRE .035 260cm J wire (759022) opened to sterile field. 10:48:26 ACIST Hand Control (65743) opened to sterile field. 10:48:26 ACIST Manifold (58355) opened to sterile field. 10:48:27 Tegaderm 4 x 4 (1626W) opened to sterile field. 10:48:29 SHEATH 6Fr Prelude Radial ([id number]) opened to sterile field. 10:49:00 GUIDE 6FR EBU 3.5 SH catheter ([id number]) opened to sterile field. 10:49:01 INFLATOR Merit BasixCompak (ED9403) opened to sterile field. 10:49:01 SHEATH 7FR Tyler (UPB494) opened to sterile field. 10:49:09 CHOICE PT Extra Support 182cm wire ([id number]) opened to sterile field. 10:50:28 Zero performed for pressure channel P1 11:08:28 Physician arrived 11::28 --------ALL STOP TIME OUT------ 11:08:29 Final Timeout: patient, procedure, and site verified with staff and physician. All members of the team are in agreement. 11:08:32 Left groin site verified by team. 11:08:35 Physical assessment completed. ASA score P 2 - A patient with mild systemic disease as per Adrián Barraza MD. 11:08:38 Sedation plan: IV Moderate Sedation Medication:Versed, Fentanyl 11:08:55 Fentanyl 50 mcg I.V. was administered by Roger Lester RN; for sedation; 11:09:36 Versed 1 mg I.V. was administered by Roger Lester RN; for sedation; 11:12:24 Procedure started. 11:12:27 Local anesthetic to left femerol artery with Lidocaine 2% by Adrián Barraza MD.INITIAL ACCESS ONLY 11:12:37 A 6 Fr Short sheath was inserted into the Left Femoral artery 11:13:25 6 Fr ebu 3.5 sh guide catheter was inserted over the wire 11:14:14 Guide Catheter removed. unable to cannulate vessel. 11:14:34 GUIDE 7FR EBU 3.5 SH catheter ([id number]) opened to sterile field. 11:14:46 7 Fr ebu 3.5 sh guide catheter was inserted over the wire 11:15:05 choice pt wire advanced. 11:16:38 Heparin Bolus 4000 units I.V. was administered by Roger Lester RN; for anticoagulation; 11:16:43 Fentanyl 50 mcg I.V. was administered by Roger Lester RN; for sedation; 11:16:48 Versed 1 mg I.V. was administered by Roger Lester RN; for sedation; 11:18:20 Inflate balloon Inflation number: 1 A EUPHORA 3.0 x 10 balloon ([id number]) was prepped and advanced across the Mid LAD, then inflated to 15 KEAGAN for 0:10 (min:sec). 11:18:57 Inflation number: 1 The EUPHORA 3.0 x 10 balloon ([id number]) was reinflated across the Prox LAD, to 17 KEAGAN for 0:10 (min:sec). 11:20:36 Inflation number: 2 The EUPHORA 3.0 x 10 balloon ([id number]) was reinflated across the Prox LAD, to 15 KEAGAN for 0:10 (min:sec). 11:20:44 Balloon removed over the wire. 11:20:59 Place stent Inflation Number: 2 A PAUL RX 3.0 x 08 stent ([id number]) was prepped and advanced across the Mid LAD. The stent was deployed at 15 KEAGAN for 0:10 (min:sec). 11:21:08 Inflation number: 3 The stent balloon was then re-inflated across the Prox LAD to 15 KEAGAN for 0:10 (min:sec). 11:21:42 Stent catheter was removed intact over wire. 11:22:50 Place stent Inflation Number: 4 A PAUL RX 3.5 x 22 stent ([id number]) was prepped and advanced across the Prox LAD. The stent was deployed at 13 KEAGAN for 0:10 (min:sec). 11:23:30 Stent catheter was removed intact over wire. 11:23:31 Wire removed. 11:23:31 Guide catheter removed. 11:23:39 EXOSEAL 7Fr (EX700) opened to sterile field. 11:24:12 Sheath removed intact; hemostasis achieved with Exoseal to the Left Femoral artery. 11:24:27 Procedure ended.(Physican Out) 11:24:48 Fluoroscopy time 05.20 minutes. 11:24:52 Flurop Dose total: 674 11:24:52 Fluoroscopy dose: 674 mGy 11:25:02 Contrast amount:Isovue 300 99ml. 11:25:03 Sharps counted by scrub and verified by R.N. 11:25:05 Insertion/operative site no bleeding no hematoma. 11:25:08 Post-op/insertion site Left Femoral artery dressed using a 4 x 4 and Tegaderm. 11:25:12 Post left femerol artery:stable 11:25:16 Post procedure rhythm: unchanged. 11:25:19 Estimated blood loss: 5 ml 11:25:20 Post procedure instruction explained to patient.Patient verbalizes understanding. 11:25:20 Patient needs reinforcement of post procedure teaching. 11:25:33 Procedure type changed to Cath procedure, Diagnostic procedure, Sedation Charges, Moderate Sedation up to 15 minutes, PCI procedure, Coronary Stent, Coronary Stent Initial 11:25:34 Procedure and supply charges have been captured, reviewed, submitted and are correct. 11:25:38 Procedure Complication : No complications 11:25:40 Vital chart was stopped 11:25:47 See physician's report for complete and final results. 11:25:50 Report given to Pre/Post Procedure Room. 11:25:53 Patient transfered to Pre/Post Procedure Room with Stretcher. 11:25:54 Procedure ended. 11:25:54 Full Disclosure recording stopped 11:26:00 ACC-PCI Only Patient was given prescriptions, or instructed by Adrián Barraza MD to start/continue the following medications upon discharge: Plavix 11:26:01 End room use (Document Last) Intervention Summary Intervention Notes Time ActionType Lesion and Equipment Used Action# Pressure Duration Attributes 11:18:20 Inflate Mid LAD EUPHORA 3.0 x 1 15 00:10 balloon 10 balloon ([id number]) 11:18:57 Reinflate Prox LAD EUPHORA 3.0 x 1 17 00:10 balloon 10 balloon ([id number]) 11:20:36 Reinflate Prox LAD EUPHORA 3.0 x 2 15 00:10 balloon 10 balloon ([id number]) 11:20:59 Place stent Mid LAD PAUL RX 3.0 x 2 15 00:10 08 stent ([id number]) 11:21:08 Reinflate Prox LAD PAUL RX 3.0 x 3 15 00:10 stent 08 stent balloon ([id number]) 11:22:50 Place stent Prox LAD PAUL RX 3.5 x 4 13 00:10 22 stent ([id number]) Device Usage Item Name Manufacture Quantity Catalog Number Hospital Part Current Minimal Lot# / Charge Number Stock Stock Serial# Code ACIST Syringe Acist 1 64933 478953 219516 [id number] 20 (10389) [employer] Medline Cath Cardinal 1 [id number] 829866 02991 598654 5 Pack Health ([id number]) Bag Decanter Microtek 1 2001S 922056 75541 006209 5 (2001S) Medical Inc. DIAGNOSTIC WIRE [address] [place] 1 432264 317819 731998 137192 30 .035 260cm J wire (555450) ACIST Hand Acist 1 50589 537455 183572 064655 5 Control (94710) [employer] Inc ACIST Manifold Acist 1 42606 016601 361959 021513 5 (45366) [employer] Inc Tegaderm 4 x 4 3M 1 1626W 642449 433610 003374 5 (1626W) SHEATH 6Fr Merit 1 [id number] 769323 809443 554741 5 Prelude [facility] Medical ([id number]) GUIDE 6FR EBU Medtronic 1 [id number] 806412 64149 651588 1 3.5 SH catheter ([id number]) INFLATOR Merit Merit 1 UE0335 582957 189231 951520 15 [facility] (EQ8258) SHEATH 7FR Terumo 1 LBU269 351658 785586 329025 5 Tyler (SHL429) CHOICE PT Extra Outlook 1 [id number] 874079 435163 352121 5 Support 182cm Scientific wire ([id number]) GUIDE 7FR EBU Medtronic 1 [id number] 297591 710303 829973 0 3.5 SH catheter ([id number]) EUPHORA 3.0 x Medtronic 1 [id number] 417835 334024 666167 5 [id number] 10 balloon ([id number]) PAUL RX 3.0 x Medtronic 1 [id number] 180597 7153148 274144 5 [id number] 08 stent ([id number]) PAUL RX 3.5 x Medtronic 1 [id number] 169633 2788670 711390 5 [id number] 22 stent ([id number]) EXOSEAL 7Fr Cardinal 1 EX700 702828 271273 430115 5 (EX700) Health Signature Audit [place] Stage Time Signature Unsigned Intra-Procedure 05/16/2018 Anju Pitt 11:28:42 AM RT(R) Signatures Monitor : Anju Pitt RT Signature : Date : Time : [address] [address]
--- NOTE | ~2018-05-16 | HP ---
PATIENT: MYLENE MILES MEDICAL RECORD: [id number] ACCOUNT: [id number] LOCATION:[facility] : [birth year] ADMISSION DATE: 05/16/18 HISTORY AND PHYSICAL EXAMINATION ADMITTING DIAGNOSES: 1. Angina. 2. Coronary artery disease. 3. Percutaneous transluminal coronary angioplasty stent of left circumflex and RCA with significant disease, LAD. 4. Hypertension. 5. Hyperlipidemia. HISTORY OF PRESENT ILLNESS: Mr. Miles presents with anginal symptomatology, found to have severe 3-vessel coronary artery disease, underwent successful PTCA stent of the RCA and left circumflex, now brought back for PTCA stent of the LAD. REVIEW OF SYSTEMS: The patient reports easy bruising but reports no swollen glands. The patient reports no fever, no night sweats, no significant weight gain, no significant weight loss. No significant exercise tolerance. The patient reports no dry eyes, no irritation, no vision change. Patient reports no difficulty hearing and no ear pain. Patient reports no frequent nose bleeds or nose and sinus problems. Patient reports on arm pain on exertion. No shortness of breath while lying down. No history of heart murmur. Patient reports no cough, no wheezing or coughing up blood. Patient reports no abdominal pain, no vomiting. Normal appetite. No diarrhea and not vomiting blood. No nausea and no constipation. Patient reports no incontinence. No difficulty urinating. No hematuria. No increased frequency. Patient reports no muscle aches. No weakness, no arthralgias, no back pain. No swelling of the extremities. Patient reports no abnormal mole, no jaundice, no rashes. Reports no loss of consciousness. No weakness and no numbness. No seizures, dizziness, or headaches. The patient reports no depression, no sleep disturbance, feeling safe in a relationship and no alcohol abuse. Patient reports on fatigue. Reports no runny nose or sinus pressure. No itching, no hives, and no frequent sneezing. PHYSICAL EXAMINATION: GENERAL APPEARANCE: Well-nourished, well-developed, appears stated age. Level of distress, comfortable. PSYCHIATRIC: Mental status, alert, normal affect. Orientation, oriented to time, place and person. EYES: Lids and conjunctiva, noninjected. No discharge, no pallor. ENT: Lips, teeth, gums, normal dentition. Oropharynx, no cyanosis, no pallor. NECK: Carotid arteries, bilateral normal upstroke, no bruits, no thrills. JUGULAR VEINS: No jugular venous pressure or distention. CERVICAL LYMPH NODES: Nontender, nonenlarged. THYROID: Not enlarged. Nontender. No nodules. LUNGS: Respiratory effort, unlabored. CHEST: Normal curvature. No thoracic deformity. No chest wall tenderness. Percussion, resonant. Auscultation, clear. No wheezes, no rales, no rhonchi. CARDIOVASCULAR: Precordial exam, nondisplaced. No heaves or pericardial thrills. Rate and rhythm, regular. Heart sounds, normal S1, normal S2. No S3, no gallop, no rub. Systolic murmur, not heard. Diastolic murmur, not heard. EXTREMITIES: No cyanosis, no edema. Peripheral pulses, full and equal in all HISTORY AND PHYSICAL [id number] MYLENE MILES extremities, except as noted. No bruits appreciated. ABDOMEN: Soft, nondistended. Normal aorta. No bruit. Nontender. No masses. Liver, nontender, no hepatomegaly. Spleen, nontender, no splenomegaly. MUSCULOSKELETAL: No joint tenderness. No joint swelling. No erythema. NEUROLOGICAL: Normal gait, normal strength, normal tone. SKIN: Warm and dry. OVERALL IMPRESSION: Anginal symptomatology with significant disease of the left anterior descending. We will proceed with percutaneous transluminal coronary angioplasty stent of the LAD. TRANSINT:[id number] Voice Confirmation ID: [id number] DOCUMENT ID: [id number] PATRICE LAIRD MD at 1710 CC: [id number] DICTATION DATE: 05/16/18 1003 WARP DRESSER: 05/16/18 1036 [facility] CLI 05/16/18 [facility] [address] [place] [address]
[2018-05-16 08:50] VITALS: BP 123/41; Ht 185.4 cm; Wt 84.5 kg
[2018-05-16 08:58] LABS: BASOPHILS 0.2 % (0-2); EOSINOPHILS 5.7 % (0-7); HEMATOCRIT 35.2 % (42.0-54.0); HEMOGLOBIN 12.2 g/dL (13.5-17.5); LYMPHOCYTES 35.6 % (15-50); MCH 31.4 pg (26.0-34.0); MCHC 34.7 g/dL (31.0-37.0); MCV 90.7 fL (80.0-100.0); MEAN PLATELET VOLUME 9.6 fL (7.4-10.4); MONOCYTES 8.1 % (2-11); NEUTROPHILS 50.4 % (40-80); PLATELET COUNT 150 10x3/uL (130-400); RBC 3.88 10x6/uL (4.20-6.10); RDW 13.3 % (11.5-14.5); WBC 4.9 10x3/uL (4.8-10.8)
[2018-05-16 09:11] LABS: ANION GAP 6.6 mmol/L (8-16); CARBON DIOXIDE 29.5 mmol/L (21.0-32.0); CREATININE - SERUM 1.4 mg/dL (0.6-1.3); POTASSIUM - SERUM 4.1 mmol/L (3.5-5.1)
== END 2018-05-16 15:50 | disposition home or self-care (01) ==
LOC: D.CATH 08:24
PROVIDERS: Internal Medicine Interventional Cardiology
DX: I25.119 Atherosclerotic heart disease of native coronary artery with unspecified angina pectoris (principal); Z95.5 Presence of coronary angioplasty implant and graft; I10 Essential (primary) hypertension; E78.5 Hyperlipidemia, unspecified; Z01.812 Encounter for preprocedural laboratory examination